=== PATIENT | female | born 1970 | race Caucasian/White ===

== ENCOUNTER → 2017-04-22 | Outpatient (CLI) | payer BC ==
--- NOTE | 2017-04-22 08:01 | US ---
EXAMINATION TYPE: US abd limited kidneys/bladder DATE OF EXAM: 04/22/2017 COMPARISON: 05/08/2016 and 12/03/2014 CLINICAL HISTORY: 46-year-old female Q61.9 Cystic kidney disease, unspecified. Pt states epigastric pain, history of renal cysts TECHNIQUE: Multiple sonographic images of the right upper quadrant, kidneys, and bladder are obtained . FINDINGS: Liver Length: 16.2 cm Gallbladder Wall: 0.2 cm CBD: 0.4 cm Right Kidney: 12.0 x 4.7 x 6.2 cm Left Kidney: 11.8 x 6.3 x 5.1 cm Pancreas: Suboptimally visualized secondary to shadowing from bowel gas Liver: wnl Gallbladder: wnl CBD: wnl Right Kidney: No hydronephrosis. Tiny 7 mm benign cortical cyst at the lateral mid to lower pole. Add itional benign 2.1 x 1.8 cm parapelvic cyst versus extra renal pelvis. Left Kidney: No hydronephrosis. Bladder: No gross abnormality. Bilateral Jets Seen Yes Stable cysts right kidney IMPRESSION: Stable cysts in the right kidney, one is cortical and subcentimeter measuring 7 mm. The second is par apelvic measuring 2.1 cm versus extrarenal pelvis.
== END | disposition home or self-care (01) ==
LOC: RADUSWWP 06:48
PROVIDERS: ATTEND Family Medicine
DX: N28.1 Cyst of kidney, acquired (principal)
CPT/HCPCS: 76705; 76770

== ENCOUNTER → 2018-05-14 | Outpatient (CLI) | payer BC ==
[2018-05-14 12:55] LABS: Basophils # (A) 0.1 k/uL (0-0.2); Basophils % (A) 2 %; Eosinophils # (A) 0.2 k/uL (0-0.7); Eosinophils % (A) 3 %; HCT 49.3 % (34.0-46.0); Lymphocytes # (A) 1.9 k/uL (1.0-4.8); Lymphocytes % (A) 37 %; MCH 32.8 pg (25.0-35.0); MCHC 32.4 g/dL (31.0-37.0); MCV 101.1 fL (80.0-100.0); Macrocytosis Slight; Mean Platelet Volume 7.1; Monocytes # (A) 0.3 k/uL (0-1.0); Monocytes % (A) 5 %; Neutrophils # (A) 2.6 k/uL (1.3-7.7); Neutrophils % (A) 50 %; Platelet Count 285 k/uL (150-450); RBC 4.88 m/uL (3.80-5.40); RDW 15.4 % (11.5-15.5); WBC 5.2 k/uL (3.8-10.6)
[2018-05-14 14:14] LABS: ALT 61 U/L (9-52); AST 43 U/L (14-36); Albumin 3.8 g/dL (3.5-5.0); Alkaline Phosphatase 66 U/L (38-126); Anion Gap 5 mmol/L; Blood Urea Nitrogen 12 mg/dL (7-17); Calcium 8.9 mg/dL (8.4-10.2); Carbon Dioxide 26 mmol/L (22-30); Chloride 110 mmol/L (98-107); Cholesterol 264 mg/dL (<200); Glucose 92 mg/dL (74-99); HDL Cholesterol 63 mg/dL (40-60); Potassium 4.5 mmol/L (3.5-5.1); Sodium 141 mmol/L (137-145); Total Bilirubin 0.5 mg/dL (0.2-1.3)
--- NOTE | 2018-05-14 14:50 | US ---
EXAMINATION TYPE: US kidneys/renal and bladder DATE OF EXAM: 05/14/2018 COMPARISON: CT abdomen and pelvis May 14, 2016 CLINICAL HISTORY: R31.9 Hematuria. hx of renal cysts, hx bladder infections EXAM MEASUREMENTS: Right Kidney: 10.8 x 5.9 x 5.1 cm Left Kidney: 10.3 x 4.8 x 4.9 cm Right Kidney: lateral cystic appearing lesion in cortical region - 0.6 x 0.7 x 0.4 cm. Medial anecho ic lesion seen at hilum - 1.4 x 2.3 x 1.3 cm. Left Kidney: wnl Bladder: wnl Bilateral Jets seen Suboptimal study due to body habitus. Technologist remy 1.4 cm round hypoechoic anechoic lesion cent [place] right kidney. IMPRESSION: No significant finding clearly seen to account for patient's symptoms of hematuria. Furth er investigation with CT urogram is warranted if symptoms persist.
[2018-05-14 15:30] LABS: LDL Cholesterol,Calculated 175 mg/dL (0-99); Triglycerides 128 mg/dL (<150)
== END | disposition home or self-care (01) ==
LOC: RADUSWWP 11:38
PROVIDERS: ATTEND Family Medicine
DX: R31.9 Hematuria, unspecified (principal); Z00.00 Encounter for general adult medical examination without abnormal findings; E27.9 Disorder of adrenal gland, unspecified
CPT/HCPCS: 76770; 80053; 80061; 82024; 82533; 84443; 85025

== ENCOUNTER 2018-05-30 10:01 | Emergency (ER) | payer BC ==
[2018-05-30 10:10] VITALS: TEMP 97.9
[2018-05-30] MEDS ORDERED: SODIUM CHLORIDE 0.9% 1,000 ML IV STA (10:33)
[2018-05-30] MEDS ORDERED: ONDANSETRON 4 MG/2 ML VIAL IVP STA (10:33)
[2018-05-30] MEDS ORDERED: SODIUM CHLORIDE 0.9% 500 ML 500 ML IV STA (10:33)
[2018-05-30] MEDS ORDERED: KETOROLAC 30 MG/ML 1 ML VIAL IVP STA (10:33)
--- NOTE | 2018-05-30 10:46 | ED ---
Back Pain HPI - General Chief Complaint: Back Pain/Injury Stated Complaint: poss kidney stones Time Seen by Provider: 05/30/18 10:20 Source: patient, RN notes reviewed Mode of arrival: ambulatory Limitations: no limitations - History of Present Illness Initial Comments: 47-year-old female presents emergency Department chief complaint of right flank pain. Patient states that this pain started approximately 90 minutes prior arrival. She states it sharp stabbing pain rates from her right flank to right lower abdomen. Patient states she has no history kidney stones. She does admit to nausea and vomiting. Patient states she has been on 3 antibiotics secondary to hematuria but states that there is been no evidence of bacterial infection. She states has not helped. Patient reports no chest pain or shortness breath she has a prior tubal ligation. - Related Data Home Medications Medication Instructions Recorded Confirmed Cyclobenzaprine [Flexeril] 10 mg PO DAILY PRN 05/30/18 05/30/18 DULoxetine HCL [Cymbalta] 30 mg PO HS 05/30/18 05/30/18 DULoxetine HCL [Cymbalta] 60 mg PO DAILY 05/30/18 05/30/18 Folic Acid 1 mg PO DAILY 05/30/18 05/30/18 Meloxicam 7.5 mg PO DAILY PRN 05/30/18 05/30/18 Methotrexate Inj 25mg/Ml 25 mg SQ HALE 05/30/18 05/30/18 Previous Rx's Medication Instructions Recorded Ketorolac [Toradol] 10 mg PO Q8HR #15 tab 05/30/18 Ondansetron Odt [Zofran Odt] 4 mg PO Q8HR PRN #10 tab 05/30/18 Tamsulosin [Flomax] 0.4 mg PO DAILY #7 cap 05/30/18 Allergies Allergy/AdvReac Type Severity Reaction Status Date / Time No Known Allergies Allergy Verified 05/30/18 10:45 Review of Systems ROS Statement: Those systems with pertinent positive or pertinent negative responses have been documented in the HPI. ROS Other: All systems not noted in ROS Statement are negative. Past Medical History Past Medical History: Fibromyalgia Additional Past Medical History / Comment(s): rheumatoid arthritis History of Any Multi-Drug Resistant Organisms: None Reported Past Surgical History: Tubal Ligation Additional Past Surgical History / Comment(s): fibroid tumor removed from uterus Past Psychological History: Depression Smoking Status: Current every day smoker Past Alcohol Use History: Rare Past Drug Use History: None Reported General Exam Limitations: no limitations General appearance: alert, in no apparent distress Head exam: Present: atraumatic, normocephalic, normal inspection Respiratory exam: Present: normal lung sounds bilaterally. Absent: respiratory distress, wheezes, rales, rhonchi, stridor Cardiovascular Exam: Present: regular rate, normal rhythm, normal heart sounds. Absent: systolic murmur, diastolic murmur, rubs, gallop, clicks GI/Abdominal exam: Present: soft, tenderness (Mild right-sided), normal bowel sounds. Absent: distended, guarding, rebound, rigid Back exam: Present: full ROM, CVA tenderness (R). Absent: CVA tenderness (L) Neurological exam: Present: alert, oriented X3, CN II-XII intact Skin exam: Present: warm, dry, intact, normal color. Absent: rash Course Vital Signs 05/30/18 10:06 Temperature 97.9 F Pulse Rate 94 Respiratory 18 Rate Blood Pressure 160/98 O2 Sat by Pulse 98 Oximetry Medical Decision Making - Medical Decision Making 47-year-old female presented for right flank pain. Patient has 2 UVJ stone 3 mm on the right, 1 left UPJ stone. Patient is comfortable after Toradol. Patient will be discharged with Toradol, Tylenol codeine, Flomax and Zofran. Return parameters were discussed. She is advised to call [facility] urology today for follow-up. - Lab Data Result diagrams: 05/30/18 10:50 05/30/18 10:50 Lab Results 05/30/18 05/30/18 05/30/18 Range/Units 10:50 10:50 10:50 WBC 7.1 (3.8-10.6) k/uL RBC 4.73 (3.80-5.40) m/uL Hgb 15.4 (11.4-16.0) gm/dL Hct 47.6 H (34.0-46.0) % MCV 100.7 H (80.0-100.0) fL MCH 32.6 (25.0-35.0) pg MCHC 32.4 (31.0-37.0) g/dL RDW 15.2 (11.5-15.5) % Plt Count 266 (150-450) k/uL Neutrophils % 59 % Lymphocytes % 27 % Monocytes % 6 % Eosinophils % 4 % Basophils % 1 % Neutrophils # 4.2 (1.3-7.7) k/uL Lymphocytes # 1.9 (1.0-4.8) k/uL Monocytes # 0.4 (0-1.0) k/uL Eosinophils # 0.3 (0-0.7) k/uL Basophils # 0.1 (0-0.2) k/uL Macrocytosis Slight Sodium 141 (137-145) mmol/L Potassium 4.3 (3.5-5.1) mmol/L Chloride 108 H (98-107) mmol/L Carbon Dioxide 27 (22-30) mmol/L Anion Gap 6 mmol/L BUN 14 (7-17) mg/dL Creatinine 0.73 (0.52-1.04) mg/dL Est GFR (CKD-EPI)AfAm >90 (>60 ml/min/1.73 sqM) Est GFR (CKD-EPI)NonAf >90 (>60 ml/min/1.73 sqM) Glucose 102 H (74-99) mg/dL Calcium 9.4 (8.4-10.2) mg/dL Total Bilirubin 0.6 (0.2-1.3) mg/dL AST 33 (14-36) U/L ALT 47 (9-52) U/L Alkaline Phosphatase 74 (38-126) U/L Total Protein 7.4 (6.3-8.2) g/dL Albumin 4.2 (3.5-5.0) g/dL Amylase 36 (30-110) U/L Lipase 45 (23-300) U/L Urine Color Yellow Urine Appearance Clear (Clear) Urine pH 5.5 (5.0-8.0) Ur Specific [place] 1.014 (1.001-1.035) Urine Protein Trace H (Negative) Urine Glucose (UA) Negative (Negative) Urine Ketones Negative (Negative) Urine Blood Moderate H (Negative) Urine Nitrite Negative (Negative) Urine Bilirubin Negative (Negative) Urine Urobilinogen <2.0 (<2.0) mg/dL Ur Leukocyte Esterase Small H (Negative) Urine RBC 31 H (0-5) /hpf Urine WBC 13 H (0-5) /hpf Ur Squamous Epith Cells 1 (0-4) /hpf Urine Bacteria Occasional H (None) /hpf Urine Mucus Occasional H (None) /hpf Disposition Clinical Impression: Bilateral ureteral calculi Disposition: HOME SELF-CARE Condition: Stable Instructions: Kidney Stones (ED) Additional Instructions: Please return to the Emergency Department if symptoms worsen or any other concerns. Prescriptions: Ketorolac [Toradol] 10 mg PO Q8HR #15 tab Ondansetron Odt [Zofran Odt] 4 mg PO Q8HR PRN #10 tab PRN Reason: Nausea Tamsulosin [Flomax] 0.4 mg PO DAILY #7 cap Is patient prescribed a controlled substance at d/c from ED?: No Referrals: Devaughn Sawant MD [Primary Care Provider] - 1-2 days Ryan Calvin MD [STAFF PHYSICIAN] - 1-2 days Time of Disposition: 13:21
[2018-05-30 11:08] LABS: Basophils # (A) 0.1 k/uL (0-0.2); Basophils % (A) 1 %; Eosinophils # (A) 0.3 k/uL (0-0.7); Eosinophils % (A) 4 %; HCT 47.6 % (34.0-46.0); HGB 15.4 gm/dL (11.4-16.0); Lymphocytes # (A) 1.9 k/uL (1.0-4.8); Lymphocytes % (A) 27 %; MCH 32.6 pg (25.0-35.0); MCHC 32.4 g/dL (31.0-37.0); MCV 100.7 fL (80.0-100.0); Macrocytosis Slight; Mean Platelet Volume 7.3; Monocytes # (A) 0.4 k/uL (0-1.0); Monocytes % (A) 6 %; Neutrophils # (A) 4.2 k/uL (1.3-7.7); Neutrophils % (A) 59 %; Platelet Count 266 k/uL (150-450); RBC 4.73 m/uL (3.80-5.40); RDW 15.2 % (11.5-15.5); WBC 7.1 k/uL (3.8-10.6)
[2018-05-30 11:17] LABS: ALT 47 U/L (9-52); AST 33 U/L (14-36); Albumin 4.2 g/dL (3.5-5.0); Alkaline Phosphatase 74 U/L (38-126); Amylase 36 U/L (30-110); Anion Gap 6 mmol/L; Blood Urea Nitrogen 14 mg/dL (7-17); Calcium 9.4 mg/dL (8.4-10.2); Carbon Dioxide 27 mmol/L (22-30); Chloride 108 mmol/L (98-107); Glucose 102 mg/dL (74-99); Lipase 45 U/L (23-300); Potassium 4.3 mmol/L (3.5-5.1); Sodium 141 mmol/L (137-145); Total Bilirubin 0.6 mg/dL (0.2-1.3); Total Protein 7.4 g/dL (6.3-8.2)
[2018-05-30 11:22] LABS: Appearance,Urine Clear (Clear); Bacteria,Urine Occasional /hpf; Bilirubin,Urine Negative (Negative); Blood,Urine Moderate (Negative); Color,Urine Yellow; Glucose,Urine (UA) Negative (Negative); Ketones,Urine Negative (Negative); Leukocyte Esterase,Urine Small (Negative); Mucus,Urine Occasional /hpf; Nitrite,Urine Negative (Negative); PH, Urine 5.5 (5.0-8.0); Protein,Urine Trace (Negative); RBC,Urine 31 /hpf (0-5); Specific Gravity,Urine 1.014 (1.001-1.035); Squamous Epithelial Cell,Urine 1 /hpf (0-4); Urobilinogen,Urine <2.0 mg/dL (<2.0); WBC,Urine 13 /hpf (0-5)
--- NOTE | 2018-05-30 12:47 | CT ---
EXAMINATION TYPE: CT abdomen pelvis wo con DATE OF EXAM: 05/30/2018 COMPARISON: 05/14/2016 HISTORY: Possible kidney stones CT DLP: 760.9 mGycm Examination of the solid and hollow viscera is limited given the lack of contrast. FINDINGS: LUNG BASES: No evidence for nodule. No evidence for infiltrate. LIVER/GB: The gallbladder is unremarkable. No space-occupying hepatic lesion. PANCREAS: No pancreatic mass identified. No inflammatory process seen. SPLEEN: No evidence for splenomegaly. No intrasplenic lesions seen. ADRENALS: No adrenal nodules identified. No evidence for thickening. KIDNEYS: Two 3 mm calculi are noted at the right UVJ resulting in [id number] right-sided hydrou reteronephrosis. 3.3 mm calculus proximal left ureter just distal to the UPJ resulting in mild left-s ided hydronephrosis. No additional renal calculi present. BOWEL: Appendix has a normal appearance. No evidence of bowel obstruction. No inflammatory process. Lymph nodes: No evidence for adenopathy greater than 1 cm. Abdominal aorta: Atheromatous changes seen. No evidence for aneurysm. Genital organs: No significant abnormality. Other: No significant abnormality. IMPRESSION: Two 3 mm calculi are noted at the right UVJ resulting in [id number] right-sided hydroureteronep hrosis. 3.3 mm calculus proximal left ureter just distal to the UPJ resulting in mild left-sided hydr onephrosis.
[2018-05-30] MEDS ORDERED: ACET/COD 300 MG/30 MG STARTER PACK 6 TAB BTL PO STA (13:21)
[2018-05-30 13:38] VITALS: BP 145/75; PULSE 71; RESP 16
== END 2018-05-30 13:38 | disposition home or self-care (01) ==
LOC: EC 10:01
DX: N20.1 Calculus of ureter (principal); M06.9 Rheumatoid arthritis, unspecified; F32.9 Major depressive disorder, single episode, unspecified; F17.200 Nicotine dependence, unspecified, uncomplicated; Z79.899 Other long term (current) drug therapy; Z98.51 Tubal ligation status
CPT/HCPCS: 36415; 80053; 82150; 83690; 85025; 81001; 74176; 99284; 96374; 96375; 96361 ×2; J2405; J1885

== ENCOUNTER 2019-06-10 16:14 | Emergency (ER) | payer BC ==
[2019-06-10] MEDS ORDERED: KETOROLAC 30 MG/ML 1 ML VIAL IVP STA (16:34)
[2019-06-10] MEDS ORDERED: SODIUM CHLORIDE 0.9% 1,000 ML IV STA (16:34)
[2019-06-10] MEDS ORDERED: ONDANSETRON 4 MG/2 ML VIAL IVP STA (16:34)
[2019-06-10 16:53] LABS: Basophils # (A) 0.1 k/uL (0-0.2); Basophils % (A) 1 %; Eosinophils # (A) 0.2 k/uL (0-0.7); Eosinophils % (A) 3 %; HCT 46.1 % (34.0-46.0); HGB 15.6 gm/dL (11.4-16.0); Lymphocytes # (A) 2.1 k/uL (1.0-4.8); Lymphocytes % (A) 23 %; MCH 31.2 pg (25.0-35.0); MCHC 33.9 g/dL (31.0-37.0); Mean Platelet Volume 7.4; Monocytes # (A) 0.6 k/uL (0-1.0); Monocytes % (A) 6 %; Neutrophils # (A) 5.9 k/uL (1.3-7.7); Neutrophils % (A) 65 %; Platelet Count 347 k/uL (150-450); RBC 5.01 m/uL (3.80-5.40); RDW 13.3 % (11.5-15.5)
--- NOTE | 2019-06-10 17:04 | XR ---
EXAMINATION TYPE: XR KUB DATE OF EXAM: 06/10/2019 COMPARISON: NONE HISTORY: Abdominal pain TECHNIQUE: 2 views upright FINDINGS: Bowel gas pattern is normal. There is no sign of intestinal obstruction or pneumoperitoneum . Fecal pattern is normal. Lung bases are clear. There is mild lumbar levoscoliosis. There are no pat hologic calcifications over the kidneys. There is no evidence of a mass. IMPRESSION: Nonacute abdomen.
[2019-06-10 17:09] LABS: ALT 20 U/L (4-34); AST 30 U/L (14-36); African American GFR (CKD) >90 (>60 ml/min/1.73 sqM); Albumin 3.9 g/dL (3.5-5.0); Alkaline Phosphatase 103 U/L (38-126); Amylase 34 U/L (30-110); Anion Gap 5 mmol/L; Blood Urea Nitrogen 10 mg/dL (7-17); Calcium 9.2 mg/dL (8.4-10.2); Carbon Dioxide 24 mmol/L (22-30); Chloride 107 mmol/L (98-107); Glucose 106 mg/dL (74-99); Non-African American GFR(CKD) >90 (>60 ml/min/1.73 sqM); Potassium 4.3 mmol/L (3.5-5.1); Sodium 136 mmol/L (137-145); Total Bilirubin 0.6 mg/dL (0.2-1.3); Total Protein 7.4 g/dL (6.3-8.2)
[2019-06-10 17:10] LABS: Appearance,Urine Clear (Clear); Bilirubin,Urine Negative (Negative); Blood,Urine Moderate (Negative); Color,Urine Yellow; Glucose,Urine (UA) Negative (Negative); Ketones,Urine Negative (Negative); Leukocyte Esterase,Urine Small (Negative); Mucus,Urine Moderate /hpf; Nitrite,Urine Negative (Negative); Protein,Urine Trace (Negative); RBC,Urine 16 /hpf (0-5); Specific Gravity,Urine 1.019 (1.001-1.035); Squamous Epithelial Cell,Urine 3 /hpf (0-4); WBC,Urine 2 /hpf (0-5)
[2019-06-10] MEDS ORDERED: ONDANSETRON 4 MG ODT STARTER PACK 2 TAB BTL PO STA (19:09)
--- NOTE | 2019-06-10 19:09 | ED ---
Abdominal Pain HPI - General Chief Complaint: Abdominal Pain Stated Complaint: Vomiting Time Seen by Provider: 06/10/19 16:20 Source: family Mode of arrival: ambulatory Limitations: no limitations - History of Present Illness Initial Comments: Patient is a 48-year-old female presenting to the emergency Department with complaints of lower abdominal cramping and discomfort that started last night. Patient states she also had one episode of vomiting today. She still continues to feel nauseous. She states her abdominal pain has been improving throughout the day but she feels like she might be getting dehydrated and she continues to be nauseous. Patient admits to bilateral fallopian tube removal, no other abdominal surgeries. Patient states she has not had a bowel movement in 2 days. Patient states this is normal for her as she has issues with constipation. She denies fever, chills, chest pain, shortness of breath, diarrhea, urinary/vaginal complaints. She has no other complaints at this time. Upon arrival to the ER, vital signs are stable. - Related Data Home Medications Medication Instructions Recorded Confirmed Cyclobenzaprine [Flexeril] 10 mg PO DAILY PRN 05/30/18 05/30/18 DULoxetine HCL [Cymbalta] 30 mg PO HS 05/30/18 05/30/18 DULoxetine HCL [Cymbalta] 60 mg PO DAILY 05/30/18 05/30/18 Folic Acid 1 mg PO DAILY 05/30/18 05/30/18 Meloxicam 7.5 mg PO DAILY PRN 05/30/18 05/30/18 Methotrexate Inj 25mg/Ml 25 mg SQ HALE 05/30/18 05/30/18 Previous Rx's Medication Instructions Recorded Ketorolac [Toradol] 10 mg PO Q8HR #15 tab 05/30/18 Ondansetron Odt [Zofran Odt] 4 mg PO Q8HR PRN #10 tab 05/30/18 Tamsulosin [Flomax] 0.4 mg PO DAILY #7 cap 05/30/18 Allergies Allergy/AdvReac Type Severity Reaction Status Date / Time cephalexin [From Keflex] AdvReac yeast Verified 06/10/19 16:18 infection Review of Systems ROS Statement: Those systems with pertinent positive or pertinent negative responses have been documented in the HPI. ROS Other: All systems not noted in ROS Statement are negative. Past Medical History Past Medical History: Fibromyalgia, Rheumatoid Arthritis (RA) Additional Past Medical History / Comment(s): rheumatoid arthritis History of Any Multi-Drug Resistant Organisms: None Reported Past Surgical History: Tubal Ligation Additional Past Surgical History / Comment(s): fibroid tumor removed from uterus Past Psychological History: Depression Smoking Status: Current every day smoker Past Alcohol Use History: Rare Past Drug Use History: None Reported General Exam - General Exam Comments Initial Comments: GENERAL: Well-appearing, well-nourished and in no acute distress. HEAD: Atraumatic, normocephalic. EYES: Pupils equal round and reactive to light, extraocular movements intact, sclera anicteric, conjunctiva are normal. ENT: TMs normal, nares patent, oropharynx clear without exudates. Moist mucous membranes. NECK: Normal range of motion, supple without lymphadenopathy or JVD. LUNGS: Breath sounds clear to auscultation bilaterally and equal. No wheezes rales or rhonchi. HEART: Regular rate and rhythm without murmurs, rubs or gallops. ABDOMEN: Mild suprapubic tenderness. Soft, nontender, normoactive bowel sounds. No guarding, no rebound. No masses appreciated. : Deferred, declined EXTREMITIES: Normal range of motion, no pitting or edema. No clubbing or cyanosis. NEUROLOGICAL: Normal speech, normal gait. PSYCH: Normal mood, normal affect. SKIN: Warm, Dry, normal turgor, no rashes or lesions noted. Limitations: no limitations Course Vital Signs 06/10/19 06/10/19 16:15 19:30 Temperature 98.3 F 98.5 F Pulse Rate 100 80 Respiratory 20 18 Rate Blood Pressure 145/82 140/79 O2 Sat by Pulse 99 98 Oximetry Medical Decision Making - Medical Decision Making Patient is a 48-year-old female presenting with lower abdominal cramping and nausea and vomiting since yesterday. Patient's vital signs are stable. Lab work shows no acute abnormalities. Urine has moderate blood, no signs of infection. Influenza is negative. KUB shows a nonacute abdomen. Patient was given fluids, Toradol, Zofran and reports improvement improvement in her symptoms. I recommended a vaginal exam however patient declined at this time. We discussed that her symptoms could be from a viral illness and/or constipation. She is in agreement with this. We discussed using MiraLAX as well as ibuprofen. She is stable for discharge at this time. Return parameters were discussed with the patient she verbalized understanding. - Lab Data Result diagrams: 06/10/19 16:40 06/10/19 16:40 Lab Results 06/10/19 06/10/19 06/10/19 Range/Units 16:40 16:40 16:40 WBC 9.0 (3.8-10.6) k/uL RBC 5.01 (3.80-5.40) m/uL Hgb 15.6 (11.4-16.0) gm/dL Hct 46.1 H (34.0-46.0) % MCV 92.0 (80.0-100.0) fL MCH 31.2 (25.0-35.0) pg MCHC 33.9 (31.0-37.0) g/dL RDW 13.3 (11.5-15.5) % Plt Count 347 (150-450) k/uL Neutrophils % 65 % Lymphocytes % 23 % Monocytes % 6 % Eosinophils % 3 % Basophils % 1 % Neutrophils # 5.9 (1.3-7.7) k/uL Lymphocytes # 2.1 (1.0-4.8) k/uL Monocytes # 0.6 (0-1.0) k/uL Eosinophils # 0.2 (0-0.7) k/uL Basophils # 0.1 (0-0.2) k/uL Sodium 136 L (137-145) mmol/L Potassium 4.3 (3.5-5.1) mmol/L Chloride 107 (98-107) mmol/L Carbon Dioxide 24 (22-30) mmol/L Anion Gap 5 mmol/L BUN 10 (7-17) mg/dL Creatinine 0.48 L (0.52-1.04) mg/dL Est GFR (CKD-EPI)AfAm >90 (>60 ml/min/1.73 sqM) Est GFR (CKD-EPI)NonAf >90 (>60 ml/min/1.73 sqM) Glucose 106 H (74-99) mg/dL Calcium 9.2 (8.4-10.2) mg/dL Total Bilirubin 0.6 (0.2-1.3) mg/dL AST 30 (14-36) U/L ALT 20 (4-34) U/L Alkaline Phosphatase 103 (38-126) U/L Total Protein 7.4 (6.3-8.2) g/dL Albumin 3.9 (3.5-5.0) g/dL Amylase 34 (30-110) U/L Lipase 38 (23-300) U/L Urine Color Yellow Urine Appearance Clear (Clear) Urine pH 7.0 (5.0-8.0) Ur Specific [place] 1.019 (1.001-1.035) Urine Protein Trace H (Negative) Urine Glucose (UA) Negative (Negative) Urine Ketones Negative (Negative) Urine Blood Moderate H (Negative) Urine Nitrite Negative (Negative) Urine Bilirubin Negative (Negative) Urine Urobilinogen 2.0 (<2.0) mg/dL Ur Leukocyte Esterase Small H (Negative) Urine RBC 16 H (0-5) /hpf Urine WBC 2 (0-5) /hpf Ur Squamous Epith Cells 3 (0-4) /hpf Urine Mucus Moderate H (None) /hpf Influenza Type A RNA (Not Detectd) Influenza Type B (PCR) (Not Detectd) 06/10/19 Range/Units 16:40 WBC (3.8-10.6) k/uL RBC (3.80-5.40) m/uL Hgb (11.4-16.0) gm/dL Hct (34.0-46.0) % MCV (80.0-100.0) fL MCH (25.0-35.0) pg MCHC (31.0-37.0) g/dL RDW (11.5-15.5) % Plt Count (150-450) k/uL Neutrophils % % Lymphocytes % % Monocytes % % Eosinophils % % Basophils % % Neutrophils # (1.3-7.7) k/uL Lymphocytes # (1.0-4.8) k/uL Monocytes # (0-1.0) k/uL Eosinophils # (0-0.7) k/uL Basophils # (0-0.2) k/uL Sodium (137-145) mmol/L Potassium (3.5-5.1) mmol/L Chloride (98-107) mmol/L Carbon Dioxide (22-30) mmol/L Anion Gap mmol/L BUN (7-17) mg/dL Creatinine (0.52-1.04) mg/dL Est GFR (CKD-EPI)AfAm (>60 ml/min/1.73 sqM) Est GFR (CKD-EPI)NonAf (>60 ml/min/1.73 sqM) Glucose (74-99) mg/dL Calcium (8.4-10.2) mg/dL Total Bilirubin (0.2-1.3) mg/dL AST (14-36) U/L ALT (4-34) U/L Alkaline Phosphatase (38-126) U/L Total Protein (6.3-8.2) g/dL Albumin (3.5-5.0) g/dL Amylase (30-110) U/L Lipase (23-300) U/L Urine Color Urine Appearance (Clear) Urine pH (5.0-8.0) Ur Specific [place] (1.001-1.035) Urine Protein (Negative) Urine Glucose (UA) (Negative) Urine Ketones (Negative) Urine Blood (Negative) Urine Nitrite (Negative) Urine Bilirubin (Negative) Urine Urobilinogen (<2.0) mg/dL Ur Leukocyte Esterase (Negative) Urine RBC (0-5) /hpf Urine WBC (0-5) /hpf Ur Squamous Epith Cells (0-4) /hpf Urine Mucus (None) /hpf Influenza Type A RNA Not Detected (Not Detectd) Influenza Type B (PCR) Not Detected (Not Detectd) Disposition Clinical Impression: Abdominal pain, Nausea & vomiting Disposition: HOME SELF-CARE Condition: Stable Instructions (If sedation given, give patient instructions): Abdominal Pain (ED) Additional Instructions: Please return to the Emergency Department if symptoms worsen or any other concerns. Continue to increase water intake. Trial of MiraLAX for constipation. Follow up with PCP if symptoms persist. Is patient prescribed a controlled substance at d/c from ED?: No Referrals: Devaughn Sawant MD [Primary Care Provider] - 1-2 days
[2019-06-10 19:34] VITALS: BP 140/79; PULSE 80; RESP 18; TEMP 98.5
== END 2019-06-10 19:32 | disposition home or self-care (01) ==
LOC: EC 16:14
DX: R10.30 Lower abdominal pain, unspecified (principal); R11.2 Nausea with vomiting, unspecified; M06.9 Rheumatoid arthritis, unspecified; F32.9 Major depressive disorder, single episode, unspecified; M79.7 Fibromyalgia; F17.200 Nicotine dependence, unspecified, uncomplicated; Z79.899 Other long term (current) drug therapy; Z88.1 Allergy status to other antibiotic agents
CPT/HCPCS: 36415; 80053; 82150; 83690; 85025; 81001; 87502; 74018; 99284; 96374; 96375; J2405; J1885; S0119

== ENCOUNTER 2021-10-19 21:51 | Inpatient (IN) | payer BC ==
[2021-10-20] MEDS ORDERED: ALBUTEROL NEBULIZED 2.5 MG/3 ML INHALATION STA ×2 (00:37→03:47)
[2021-10-20] MEDS ORDERED: predniSONE 20 MG TAB PO STA (00:37)
[2021-10-20] MEDS ORDERED: IPRATROPIUM-ALBUTEROL 3 ML NEB INHALATION STA (00:37)
--- NOTE | 2021-10-20 00:48 | ED ---
SOB HPI - General Chief Complaint: Shortness of Breath Stated Complaint: KACI Time Seen by Provider: 10/19/21 23:57 Source: patient Mode of arrival: ambulatory Limitations: no limitations - History of Present Illness Initial Comments: This patient is a 51-year-old woman who states she has history of some COPD and probably some interstitial lung disease related to rheumatoid arthritis. She notes that her respiratory status has been worsening over the past 3 days or so. She has had increased coughing, without sputum, increased wheezing and shortness of breath. She has tried using her home medications without much relief. She has not noted fever or chills. Again no change in sputum. No change in urination or bowel movements. No leg pain or swelling. MD Complaint: shortness of breath, cough Onset/Timin -: days(s) Severity scale (1-10): 0 Consistency: constant Improves With: nothing Worsens With: nothing Known History Of: COPD Associated Symptoms: cough Treatments Prior to Arrival: oxygen, bronchodilator - Related Data Home Oxygen Therapy: Yes Home Medications Medication Instructions Recorded Confirmed DULoxetine HCL [Cymbalta] 30 mg PO DAILY@1430 05/30/18 10/20/21 DULoxetine HCL [Cymbalta] 60 mg PO DAILY 05/30/18 10/20/21 Folic Acid 1 mg PO DAILY 05/30/18 10/20/21 Dextroamphetamine/Amphetamine 15 mg PO DAILY 08/08/21 10/20/21 [Adderall Xr] Hydroxychloroquine Sulfate 400 mg PO DAILY 08/08/21 10/20/21 Omeprazole 40 mg PO DAILY PRN 08/08/21 10/20/21 Tofacitinib Citrate [Xeljanz Xr] 11 mg PO DAILY 08/08/21 10/20/21 Albuterol Nebulized [Ventolin 2.5 mg INHALATION RT-TID 10/20/21 10/20/21 Nebulized] Fluticasone/Vilanterol [Breo 1 puff INHALATION RT-DAILY 10/20/21 10/20/21 Ellipta 200-25 Mcg Inhaler] Tiotropium 2.5 Mcg/Puff [Spiriva 2 puff INHALATION RT-DAILY 10/20/21 10/20/21 Respimat 2.5 Mcg] Allergies Allergy/AdvReac Type Severity Reaction Status Date / Time cephalexin [From Keflex] AdvReac yeast Verified 10/20/21 07:18 infection Review of Systems ROS Statement: Those systems with pertinent positive or pertinent negative responses have been documented in the HPI. ROS Other: All systems not noted in ROS Statement are negative. Constitutional: Denies: fever, chills Respiratory: Reports: cough, dyspnea, wheezes. Denies: hemoptysis Cardiovascular: Denies: chest pain, palpitations, edema, syncope Gastrointestinal: Denies: abdominal pain, nausea, vomiting Genitourinary: Denies: dysuria, frequency, hematuria Musculoskeletal: Denies: back pain Skin: Denies: rash Neurological: Denies: headache, weakness, numbness Psychiatric: Denies: anxiety Past Medical History Past Medical History: Fibromyalgia, Rheumatoid Arthritis (RA) Additional Past Medical History / Comment(s): rheumatoid arthritis History of Any Multi-Drug Resistant Organisms: None Reported Past Surgical History: Tubal Ligation Additional Past Surgical History / Comment(s): fibroid tumor removed from uterus Past Anesthesia/Blood Transfusion Reactions: No Reported Reaction Past Psychological History: Depression Smoking Status: Current every day smoker Past Alcohol Use History: Rare Past Drug Use History: None Reported - Past Family History Mother Family Medical History: Asthma Additional Family Medical History / Comment(s): Spinal stenosis, multiple abdominal surgeries/hernias Father Family Medical History: No Reported History Additional Family Medical History / Comment(s): Father is very healthy General Exam Limitations: no limitations General appearance: alert, in distress Head exam: Present: atraumatic, normocephalic Neck exam: Present: normal inspection Respiratory exam: Present: respiratory distress, wheezes, decreased breath sounds, prolonged expiratory. Absent: rales, rhonchi, stridor, accessory muscle use Cardiovascular Exam: Present: normal rhythm, tachycardia, normal heart sounds. Absent: systolic murmur, diastolic murmur, rubs, gallop GI/Abdominal exam: Present: soft. Absent: distended, tenderness, guarding, rebound, rigid, mass Extremities exam: Present: normal inspection, normal capillary refill. Absent: pedal edema, calf tenderness Back exam: Present: normal inspection. Absent: CVA tenderness (R), CVA tenderness (L) Neurological exam: Present: alert Skin exam: Present: warm, dry, intact, normal color. Absent: rash Course Vital Signs 10/19/21 10/20/21 10/20/21 22:23 00:48 00:59 Temperature 98.5 F Pulse Rate 118 H 108 H 108 H Pulse Rate [ Pulse Oximetery ] Respiratory 26 H Rate Blood Pressure 169/90 Blood Pressure [Right Arm] O2 Sat by Pulse 93 L Oximetry 10/20/21 10/20/21 10/20/21 04:34 04:46 04:56 Temperature Pulse Rate 118 H 112 H 110 H Pulse Rate [ Pulse Oximetery ] Respiratory 18 Rate Blood Pressure 113/76 Blood Pressure [Right Arm] O2 Sat by Pulse 95 Oximetry 10/20/21 10/20/21 10/20/21 05:00 06:00 07:35 Temperature Pulse Rate 107 H 103 H 117 H Pulse Rate [ Pulse Oximetery ] Respiratory 12 15 Rate Blood Pressure 113/76 113/76 Blood Pressure [Right Arm] O2 Sat by Pulse 96 98 96 Oximetry 10/20/21 10/20/21 10/20/21 07:48 09:32 11:10 Temperature Pulse Rate 109 H 110 H 110 H Pulse Rate [ Pulse Oximetery ] Respiratory 20 Rate Blood Pressure 119/80 Blood Pressure [Right Arm] O2 Sat by Pulse 97 Oximetry 10/20/21 10/20/21 10/20/21 11:25 12:30 14:00 Temperature 98.2 F Pulse Rate 116 H 116 H Pulse Rate [ 108 H Pulse Oximetery ] Respiratory 18 15 Rate Blood Pressure 129/88 Blood Pressure 117/74 [Right Arm] O2 Sat by Pulse 95 93 L Oximetry 10/20/21 14:34 Temperature Pulse Rate 106 H Pulse Rate [ Pulse Oximetery ] Respiratory 18 Rate Blood Pressure 130/79 Blood Pressure [Right Arm] O2 Sat by Pulse 100 Oximetry Medical Decision Making - Medical Decision Making Patient's 51-year-old woman presenting with dyspnea. I suspect there are components of COPD as well as interstitial lung disease related to rheumatoid arthritis. Patient be admitted for further evaluation and treatment as well as pulmonology consultation. - Lab Data Result diagrams: 10/20/21 01:14 10/20/21 01:14 Lab Results 10/20/21 10/20/21 10/20/21 Range/Units 01:14 01:14 01:14 WBC 8.0 (3.8-10.6) k/uL RBC 5.07 (3.80-5.40) m/uL Hgb 15.6 (11.4-16.0) gm/dL Hct 48.4 H (34.0-46.0) % MCV 95.4 (80.0-100.0) fL MCH 30.7 (25.0-35.0) pg MCHC 32.2 (31.0-37.0) g/dL RDW 14.4 (11.5-15.5) % Plt Count 314 (150-450) k/uL MPV 7.7 Neutrophils % 68 % Lymphocytes % 22 % Monocytes % 6 % Eosinophils % 0 % Basophils % 1 % Neutrophils # 5.4 (1.3-7.7) k/uL Lymphocytes # 1.8 (1.0-4.8) k/uL Monocytes # 0.5 (0-1.0) k/uL Eosinophils # 0.0 (0-0.7) k/uL Basophils # 0.1 (0-0.2) k/uL PT 10.0 (9.0-12.0) sec INR 0.9 (<1.2) APTT 22.5 (22.0-30.0) sec D-Dimer 0.37 (<0.60) mg/L FEU Sodium 137 (137-145) mmol/L Potassium 4.0 (3.5-5.1) mmol/L Chloride 103 (98-107) mmol/L Carbon Dioxide 26 (22-30) mmol/L Anion Gap 8 mmol/L BUN 21 H (7-17) mg/dL Creatinine 0.66 (0.52-1.04) mg/dL Est GFR (CKD-EPI)AfAm >90 (>60 ml/min/1.73 sqM) Est GFR (CKD-EPI)NonAf >90 (>60 ml/min/1.73 sqM) Glucose 156 H (74-99) mg/dL Plasma Lactic Acid Lionel (0.7-2.0) mmol/L Calcium 9.4 (8.4-10.2) mg/dL Total Bilirubin 0.3 (0.2-1.3) mg/dL AST 31 (14-36) U/L ALT 27 (4-34) U/L Alkaline Phosphatase 89 (38-126) U/L Troponin I (0.000-0.034) ng/mL NT-Pro-B Natriuret Pep pg/mL Total Protein 7.5 (6.3-8.2) g/dL Albumin 4.2 (3.5-5.0) g/dL Coronavirus (PCR) (Not Detectd) Influenza Type A RNA (Not Detectd) Influenza Type B (PCR) (Not Detectd) 10/20/21 10/20/21 10/20/21 Range/Units 01:14 01:14 01:14 WBC (3.8-10.6) k/uL RBC (3.80-5.40) m/uL Hgb (11.4-16.0) gm/dL Hct (34.0-46.0) % MCV (80.0-100.0) fL MCH (25.0-35.0) pg MCHC (31.0-37.0) g/dL RDW (11.5-15.5) % Plt Count (150-450) k/uL MPV Neutrophils % % Lymphocytes % % Monocytes % % Eosinophils % % Basophils % % Neutrophils # (1.3-7.7) k/uL Lymphocytes # (1.0-4.8) k/uL Monocytes # (0-1.0) k/uL Eosinophils # (0-0.7) k/uL Basophils # (0-0.2) k/uL PT (9.0-12.0) sec INR (<1.2) APTT (22.0-30.0) sec D-Dimer (<0.60) mg/L FEU Sodium (137-145) mmol/L Potassium (3.5-5.1) mmol/L Chloride (98-107) mmol/L Carbon Dioxide (22-30) mmol/L Anion Gap mmol/L BUN (7-17) mg/dL Creatinine (0.52-1.04) mg/dL Est GFR (CKD-EPI)AfAm (>60 ml/min/1.73 sqM) Est GFR (CKD-EPI)NonAf (>60 ml/min/1.73 sqM) Glucose (74-99) mg/dL Plasma Lactic Acid Lionel 1.1 (0.7-2.0) mmol/L Calcium (8.4-10.2) mg/dL Total Bilirubin (0.2-1.3) mg/dL AST (14-36) U/L ALT (4-34) U/L Alkaline Phosphatase (38-126) U/L Troponin I <0.012 (0.000-0.034) ng/mL NT-Pro-B Natriuret Pep 23 pg/mL Total Protein (6.3-8.2) g/dL Albumin (3.5-5.0) g/dL Coronavirus (PCR) (Not Detectd) Influenza Type A RNA (Not Detectd) Influenza Type B (PCR) (Not Detectd) 10/20/21 10/20/21 Range/Units 01:14 01:14 WBC (3.8-10.6) k/uL RBC (3.80-5.40) m/uL Hgb (11.4-16.0) gm/dL Hct (34.0-46.0) % MCV (80.0-100.0) fL MCH (25.0-35.0) pg MCHC (31.0-37.0) g/dL RDW (11.5-15.5) % Plt Count (150-450) k/uL MPV Neutrophils % % Lymphocytes % % Monocytes % % Eosinophils % % Basophils % % Neutrophils # (1.3-7.7) k/uL Lymphocytes # (1.0-4.8) k/uL Monocytes # (0-1.0) k/uL Eosinophils # (0-0.7) k/uL Basophils # (0-0.2) k/uL PT (9.0-12.0) sec INR (<1.2) APTT (22.0-30.0) sec D-Dimer (<0.60) mg/L FEU Sodium (137-145) mmol/L Potassium (3.5-5.1) mmol/L Chloride (98-107) mmol/L Carbon Dioxide (22-30) mmol/L Anion Gap mmol/L BUN (7-17) mg/dL Creatinine (0.52-1.04) mg/dL Est GFR (CKD-EPI)AfAm (>60 ml/min/1.73 sqM) Est GFR (CKD-EPI)NonAf (>60 ml/min/1.73 sqM) Glucose (74-99) mg/dL Plasma Lactic Acid Lionel (0.7-2.0) mmol/L Calcium (8.4-10.2) mg/dL Total Bilirubin (0.2-1.3) mg/dL AST (14-36) U/L ALT (4-34) U/L Alkaline Phosphatase (38-126) U/L Troponin I (0.000-0.034) ng/mL NT-Pro-B Natriuret Pep pg/mL Total Protein (6.3-8.2) g/dL Albumin (3.5-5.0) g/dL Coronavirus (PCR) Not Detected (Not Detectd) Influenza Type A RNA Not Detected (Not Detectd) Influenza Type B (PCR) Not Detected (Not Detectd) Disposition Clinical Impression: COPD exacerbation Disposition: ADMITTED IP TO THIS HOSP Condition: Fair Is patient prescribed a controlled substance at d/c from ED?: No
--- NOTE | 2021-10-20 01:25 | XR ---
EXAMINATION TYPE: XR chest 2V DATE OF EXAM: 10/20/2021 COMPARISON: 09/06/2021 HISTORY: Short of breath TECHNIQUE: 2 views FINDINGS: Heart and mediastinum are normal. Lungs are clear. Diaphragm is normal. Bony thorax appears normal. IMPRESSION: Normal chest. No change.
[2021-10-20 02:04] LABS: ALT 27 U/L (4-34); AST 31 U/L (14-36); African American GFR (CKD) >90 (>60 ml/min/1.73 sqM); Albumin 4.2 g/dL (3.5-5.0); Alkaline Phosphatase 89 U/L (38-126); Anion Gap 8 mmol/L; Basophils # (A) 0.1 k/uL (0-0.2); Basophils % (A) 1 %; Blood Urea Nitrogen 21 mg/dL (7-17); Calcium 9.4 mg/dL (8.4-10.2); Carbon Dioxide 26 mmol/L (22-30); Chloride 103 mmol/L (98-107); Eosinophils % (A) 0 %; Glucose 156 mg/dL (74-99); HCT 48.4 % (34.0-46.0); HGB 15.6 gm/dL (11.4-16.0); Lymphocytes # (A) 1.8 k/uL (1.0-4.8); Lymphocytes % (A) 22 %; MCH 30.7 pg (25.0-35.0); MCHC 32.2 g/dL (31.0-37.0); MCV 95.4 fL (80.0-100.0); Mean Platelet Volume 7.7; Monocytes # (A) 0.5 k/uL (0-1.0); Monocytes % (A) 6 %; Neutrophils # (A) 5.4 k/uL (1.3-7.7); Neutrophils % (A) 68 %; Non-African American GFR(CKD) >90 (>60 ml/min/1.73 sqM); Platelet Count 314 k/uL (150-450); RBC 5.07 m/uL (3.80-5.40); RDW 14.4 % (11.5-15.5); Sodium 137 mmol/L (137-145); Total Bilirubin 0.3 mg/dL (0.2-1.3); Total Protein 7.5 g/dL (6.3-8.2)
[2021-10-20 02:09] LABS: INR 0.9 (<1.2); Partial Thromboplastin Time 22.5 sec (22.0-30.0)
[2021-10-20] MEDS ORDERED: ALBUTEROL NEBULIZED 2.5 MG/3 ML INHALATION PRN ×2 (04:00→13:31)
--- NOTE | 2021-10-20 04:57 | P.HPIM ---
History of Present Illness H&P Date: 10/20/21 Patient is a 51-year-old female with a PMH of COPD, rheumatoid arthritis, chronic hypoxic respiratory failure on 3 L nasal cannula oxygen continuously at home who presents to the emergency room with complaints of shortness of breath. Patient reports her breathing has been gradually worsening over the past 3 days along with increased wheezing and cough productive of white phlegm. She denied experiencing chest discomfort or leg pain. Reports no changes in color and her phlegm. Reports using her inhalers at home without significant relief. Denied fever, chills, nausea, vomiting, abdominal pain, diarrhea. Chest x-ray was unremarkable. Review of systems: Pertinent positives and negatives as discussed in HPI, a complete review of systems was performed and all other systems are negative. Physical examination: General: non toxic, no distress, appears at stated age, obese Derm: no unusual rashes/lesions no unusual ecchymoses, warm, dry Head: atraumatic, normocephalic, symmetric Eyes: EOMI, no lid lag, anicteric sclera, pupils equal round reactive to light ENT: Nose and ears atraumatic, no thrush, no pharyngeal erythema Neck: No thyromegaly, no cervical lymphadenopathy, trachea midline, supple Mouth: no lip lesion, mucus membranes moist Cardiovascular: S1S2 reg, no murmur, positive posterior tibial pulse bilateral, no edema, capillary refill less than 2 seconds Lungs: Diffuse wheezing without rhonchi or rales, no accessory muscle use Abdominal: soft, nontender to palpation, no guarding, no appreciable organomegaly, normal bowel sounds Ext: no gross muscle atrophy, muscle strength 5 out of 5 in all 4 extremities grossly, no contractures, Neuro: CN II-XI grossly intact, light touch intact all 4 extremities, finger to nose within normal limits, Psych: Alert, oriented, appropriate affect Assessment/plan Acute COPD exacerbation -Continue with Solu-Medrol -DuoNeb's -Supplemental oxygen -Pulmonary consult Chronic conditions: Rheumatoid arthritis -Continue with home meds DVT prophylaxis -Heparin subq The patient is admitted with an anticipated greater than 2 midnight stay for evaluation of COPD exacerbation CODE STATUS: Full Code Discussed with: Patient Anticipated discharge date: 2-[address]: Home Past Medical History Past Medical History: Fibromyalgia, Rheumatoid Arthritis (RA) Additional Past Medical History / Comment(s): rheumatoid arthritis History of Any Multi-Drug Resistant Organisms: None Reported Past Surgical History: Tubal Ligation Additional Past Surgical History / Comment(s): fibroid tumor removed from uterus Past Anesthesia/Blood Transfusion Reactions: No Reported Reaction Past Psychological History: Depression Smoking Status: Current every day smoker Past Alcohol Use History: Rare Past Drug Use History: None Reported - Past Family History Mother Family Medical History: Asthma Additional Family Medical History / Comment(s): Spinal stenosis, multiple abdominal surgeries/hernias Father Family Medical History: Cancer Additional Family Medical History / Comment(s): Father is very healthy Medications and Allergies Home Medications Medication Instructions Recorded Confirmed Type DULoxetine HCL [Cymbalta] 30 mg PO HS 05/30/18 08/08/21 History DULoxetine HCL [Cymbalta] 60 mg PO DAILY 05/30/18 08/08/21 History Folic Acid 1 mg PO DAILY 05/30/18 08/08/21 History Albuterol Sulfate [Albuterol 2 puff PO RT-Q4H PRN 08/08/21 08/08/21 History Sulfate Hfa] Dextroamphetamine/Amphetamine 15 mg PO DAILY 08/08/21 08/08/21 History [Adderall Xr] Fluticasone/Vilanterol [Breo 1 puff PO RT-DAILY 08/08/21 08/08/21 History Ellipta 100-25 Mcg Inhaler] Hydroxychloroquine Sulfate 400 mg PO DAILY 08/08/21 08/08/21 History Kenalog 40mg/Ml Suspension For 2 ml INJ ONCE 08/08/21 08/08/21 History Injection Naltrexone HCl [Revia] 50 mg PO DAILY 08/08/21 08/08/21 History Omeprazole 40 mg PO DAILY 08/08/21 08/08/21 History Tofacitinib Citrate [Xeljanz Xr] 11 mg PO DAILY 08/08/21 08/08/21 History traMADol HCL 50 mg PO TID PRN 08/08/21 08/08/21 History Albuterol Nebulized [Ventolin 2.5 mg INHALATION Q6H 6 Days #75 ml 08/12/21 Rx Nebulized] Azithromycin [Zithromax] 500 mg PO DAILY #3 tab 08/12/21 Rx Ipratropium-Albuterol Nebulize 3 ml INHALATION RT-QID #120 dose 08/12/21 Rx [Duoneb 0.5 mg-3 mg/3 ml Soln] predniSONE 0 mg PO DIRECTED #22 tab 08/12/21 Rx Allergies Allergy/AdvReac Type Severity Reaction Status Date / Time cephalexin [From Keflex] AdvReac yeast Verified 06/10/19 16:18 infection Physical Exam Vitals: Vital Signs Temp Pulse Resp BP Pulse Ox 10/20/21 04:34 118 H 10/20/21 00:59 108 H 10/20/21 00:48 108 H 10/19/21 22:23 98.5 F 118 H 26 H 169/90 93 L Intake and Output 10/19/21 10/19/21 10/20/21 14:59 22:59 06:59 Other: Weight 90.718 kg Results CBC & Chem 7: 10/20/21 01:14 10/20/21 01:14 Labs: Abnormal Lab Results - Last 24 Hours (Table) 10/20/21 10/20/21 Range/Units 01:14 01:14 Hct 48.4 H (34.0-46.0) % BUN 21 H (7-17) mg/dL Glucose 156 H (74-99) mg/dL
[2021-10-20] MEDS: IPRATROPIUM-ALBUTEROL 3 ML NEB INHALATION SCH ×4 (07:35→20:01)
[2021-10-20 07:42] LABS: Glucose,Whole Blood 161 mg/dL (75-99)
[2021-10-20] MEDS: INSULIN ASPART (NovoLOG) 100 UNIT/ML VIAL SQ SCH ×4 (08:17→21:12)
[2021-10-20] MEDS ORDERED: predniSONE 20 MG TAB PO SCH (09:00)
[2021-10-20 12:31] LABS: Glucose,Whole Blood 155 mg/dL (75-99)
--- NOTE | 2021-10-20 13:32 | P.CNPUL ---
History of Present Illness Consult date: 10/20/21 Reason for consult: dyspnea, COPD History of present illness: This is a 51-year-old female patient with history of COPD. The patient does smoke this is a very young age. This is a second admission for this patient was hospitalized earlier for the same. She is negative for COVID 19 and she is also negative for influenza A and B. She has been vaccinated for COVID 192. She was seen in our office earlier and she has severe COPD with an FEV1 of 32% of predicted which is oxygen dependent. Despite all this, she still working at [employer]. She carries a nebulizer with her even at work so that she continue to use it on an as-needed basis. She is taken Breo 1 puff a day and Spiriva 2 puffs a day along with albuterol neb blood sugars as needed and albuterol HFA as needed. She gets short of breath with limited amount of activity and she coming in for exacerbation of her COPD. No pleurisy. No hemoptysis. No chest pain. I reviewed the CAT scan of the chest that was done back in July 2021 and the patient had some limited groundglass changes in lung bases more so on the right which could be potentially an indication of smoking induced ILD versus rheumatoid arthritis induced ILD as the patient has also history of rheumatoid arthritis maintained on a combination of Xaljanz and Plaquenil on outpatient basis. The patient has been on steroids in the past. No other major medical problems and comorbidities. Her joints are currently hot and her arthritis is active. Blood work essentially within normal limits. White cell count is normal. Hemoglobin is normal. Chest x-ray is within normal limits. . Normal d-dimer. No DVT. No pulmonary embolism. Her last cigarette was 2 days ago Review of Systems Constitutional: Reports daytime sleepiness, Reports fatigue, Reports weakness Eyes: denies as per HPI, denies blurred vision, denies bulging eye, denies dec reased vision, denies diplopia, denies discharge, denies dry eye, denies irritation, denies itching, denies pain, denies photophobia, denies loss of peripheral vision, denies loss of vision, denies tunnel vision/blind spots Ears: deny: decreased hearing, ear discharge, earache, tinnitus Ears, nose, mouth and throat: Reports as per HPI Breasts: absent: as per HPI, change in shape, gynecomastia, masses, nipple discharge, pain, skin changes, swelling Cardiovascular: Reports decreased exercise tolerance, Reports dyspnea on exertion, Reports shortness of breath Respiratory: Reports cough, Reports dyspnea, Reports snoring, Reports wheezing Genitourinary: Reports as per HPI Menstruation: Reports as per HPI Musculoskeletal: Reports as per HPI, Reports hot joints Musculoskeletal: absent: ankle pain, ankle stiffness, ankle swelling, as per HPI, elbow pain, elbow stiffness, elbow swelling, foot pain, foot stiffness, foot swelling, hand pain, hand stiffness, hand swelling, hip pain, hip stiffness, hip swelling, knee pain, knee stiffness, knee swelling, shoulder pain, shoulder stiffness, shoulder swelling, wrist pain, wrist stiffness, wrist swelling Integumentary: Reports as per HPI Neurological: Reports as per HPI Psychiatric: Reports as per HPI Endocrine: Reports as per HPI Hematologic/Lymphatic: Reports as per HPI Allergic/Immunologic: Reports as per HPI Past Medical History Past Medical History: Fibromyalgia, Rheumatoid Arthritis (RA) Additional Past Medical History / Comment(s): rheumatoid arthritis History of Any Multi-Drug Resistant Organisms: None Reported Past Surgical History: Tubal Ligation Additional Past Surgical History / Comment(s): fibroid tumor removed from uterus Past Anesthesia/Blood Transfusion Reactions: No Reported Reaction Past Psychological History: Depression Smoking Status: Current every day smoker Past Alcohol Use History: Rare Past Drug Use History: None Reported - Past Family History Mother Family Medical History: Asthma Additional Family Medical History / Comment(s): Spinal stenosis, multiple abdominal surgeries/hernias Father Family Medical History: No Reported History Additional Family Medical History / Comment(s): Father is very healthy Medications and Allergies Home Medications Medication Instructions Recorded Confirmed Type DULoxetine HCL [Cymbalta] 30 mg PO DAILY@1430 05/30/18 10/20/21 History DULoxetine HCL [Cymbalta] 60 mg PO DAILY 05/30/18 10/20/21 History Folic Acid 1 mg PO DAILY 05/30/18 10/20/21 History Dextroamphetamine/Amphetamine 15 mg PO DAILY 08/08/21 10/20/21 History [Adderall Xr] Hydroxychloroquine Sulfate 400 mg PO DAILY 08/08/21 10/20/21 History Omeprazole 40 mg PO DAILY PRN 08/08/21 10/20/21 History Tofacitinib Citrate [Xeljanz Xr] 11 mg PO DAILY 08/08/21 10/20/21 History Albuterol Nebulized [Ventolin 2.5 mg INHALATION RT-TID 10/20/21 10/20/21 History Nebulized] Fluticasone/Vilanterol [Breo 1 puff INHALATION RT-DAILY 10/20/21 10/20/21 History Ellipta 200-25 Mcg Inhaler] Tiotropium 2.5 Mcg/Puff [Spiriva 2 puff INHALATION RT-DAILY 10/20/21 10/20/21 History Respimat 2.5 Mcg] Allergies Allergy/AdvReac Type Severity Reaction Status Date / Time cephalexin [From Keflex] AdvReac yeast Verified 10/20/21 07:18 infection Physical Exam Vitals: Vital Signs Temp Pulse Resp BP Pulse Ox 10/20/21 12:30 116 H 18 129/88 95 10/20/21 11:25 116 H 10/20/21 11:10 110 H 10/20/21 09:32 110 H 20 119/80 97 10/20/21 07:48 109 H 10/20/21 07:35 117 H 96 10/20/21 06:00 103 H 15 113/76 98 10/20/21 05:00 107 H 12 113/76 96 10/20/21 04:56 110 H 18 113/76 95 10/20/21 04:46 112 H 10/20/21 04:34 118 H 10/20/21 00:59 108 H 10/20/21 00:48 108 H 10/19/21 22:23 98.5 F 118 H 26 H 169/90 93 L Intake and Output 10/19/21 10/20/21 10/20/21 22:59 06:59 14:59 Other: Weight 90.718 kg - Constitutional General appearance: obese - EENT Eyes: EOMI Ears: negative: bulging, bullous, dull, erythema, fluid, myringotomy tube, obs tructed by cerumen, scarring, unable to vistualize, other - Neck Carotids: negative: upstroke normal, upstroke delayed, upstroke diminished, upstroke bounding, bruit absent, bruit present Thyroid: negative: normal size, enlarged, firm, nodule - Respiratory Respiratory: bilateral: diminished, wheezing - Cardiovascular Heart sounds: normal: S1, S2 - Gastrointestinal General gastrointestinal: no organomegaly, soft, no tenderness - Neurologic Neurologic: CNII-XII intact - Psychiatric Psychiatric: A&O x's 3 Results - Laboratory Findings CBC and BMP: 10/20/21 01:14 10/20/21 01:14 PT/INR, D-dimer PT 10.0 sec (9.0-12.0) 10/20/21 01:14 INR 0.9 (<1.2) 10/20/21 01:14 D-Dimer 0.37 mg/L FEU (<0.60) 10/20/21 01:14 Abnormal lab findings: Abnormal Labs 10/20/21 10/20/21 10/20/21 01:14 01:14 07:40 Hct 48.4 H BUN 21 H Glucose 156 H POC Glucose (mg/dL) 161 H 10/20/21 12:29 Hct BUN Glucose POC Glucose (mg/dL) 155 H - Diagnostic Findings Chest x-ray: image reviewed Assessment and Plan Plan: Acute exacerbation of COPD with secondary shortness of breath Severe COPD at baseline with an FEV1 of 32% of predicted maintain Breo and Spiriva on outpatient basis Chronic hypoxic respiratory failure with acute decompensation secondary to above. Questionable ILD based on her earlier CAT scan. Consider rheumatoid arthritis induced ILD versus smoking use ILD. The patient had some limited groundglass changes in lung bases more so on the right. History of rheumatoid arthritis maintained on a combination of the Xaljanz and Plaquenil outpatient basis, she had been on methotrexate in the past. Smoker Obesity Plan Optimize COPD with recurrent treatments of bronchodilators, and I would suggest putting the patient back on IV Solu-Medrol. She should be able to use her Breo elective from home. I can also provide her with 5 Karen from the hospital one puff once a day. Once fully recovered, the patient will need a high resolution computed tomography scan of the chest to rule out the possibility of underlying interstitial lung disease. Continue rheumatoid arthritis management with a combination of treatment including Plaquenil and Xaljanz. She was on methotrexate in the past and she hasn't taken it for a total of 10 years and she quit methotrexate. Absolutely no smoking. Weight loss is recommended. We'll continue to follow.
[2021-10-20] MEDS ORDERED: PANTOPRAZOLE 40 MG TABLET PO PRN (14:05)
[2021-10-20] MEDS: DULoxetine HCL 30 MG CAPSULE.DR PO SCH (14:33)
--- NOTE | 2021-10-20 14:50 | P.PN ---
Subjective Progress Note Date: 10/20/21 Hospital course: Patient is a very pleasant 51-year-old female with a past medical history of rheumatoid arthritis, fibromyalgia, and COPD with continued nicotine dependence. Patient reports she has officially quit smoking as of coming into the hospital but up until hospitalization was still smoking approximately a half a pack of cigarettes per day. Patient presented to the emergency department with a chief complaint of increased shortness of breath and cough. She underwent full evaluation in the emergency department. CBC, coags, d-dimer, CMP, and troponin all unremarkable. Covid PCR, influenza A, and influenza B were all negative. EKG revealed sinus tachycardia at 110 bpm with no noted T-wave or ST abnormalities showing no signs of acute ischemia. Chest x-ray negative for acute cardiopulmonary process. Patient initially hypoxic and requiring 3 L O2 via nasal cannula to maintain SpO2 greater than 92%. Patient admitted under our services for acute on chronic respiratory failure with hypoxia secondary to COPD exacerbation. Pulmonology is consulted. Physical exam: Patient seen and evaluated at bedside this morning. She reports continued shortness of breath at rest and worsens with any exertion or during coughing fit. Patient denies having any headache, lightheadedness, dizziness, chest pain, palpitations, or experiencing any numbness/tingling/weakness/swelling in her extremities. Patient to continue Symbicort along with DuoNeb as needed for shortness of breath and/or wheezing. Patient placed on Solu-Medrol 60 mg IVP every 6 hours. Vital signs reviewed and stable. General: Nontoxic, no distress and appears stated age. Derm: Skin warm and dry, normal coloration for ethnicity. Head: Atraumatic, normocephalic and symmetric. Eyes: EOMs intact, no lid lag, and anicteric sclera Mouth: no lip lesions, mucus membranes moist Cardiovascular: regular rate and rhythm with normal S1S2, no murmur, positive posterior tibial pulses bilaterally, and cap refill < 2 seconds. Lungs: Respirations even, regular, and unlabored on room air. Lungs tight with noted expiratory wheezes throughout all blankenship. Abdominal: soft, nontender to palpation, no guarding, no appreciable organomegaly Ext: ROM intact. No gross muscle atrophy, no edema, no contractures Neuro: Speech clear, face symmetrical and CN II-XII grossly intact with no noted focal neuro deficits Psych: Alert and oriented to person, place, time, and situation. Appropriate and pleasant affect. Assessment and Plan of Care: Acute COPD exacerbation Acute respiratory failure with hypoxia secondary to COPD exacerbation -Consult to Pulmonology -Oxygenation to be administered and titrated as needed to maintain SPO2 equal to or greater than 92% -Telemetry monitoring. -Continuous Pulse-oximetry -Duonebs as needed for SOB and/or wheezing -Incentive Spirometry -Steroids: Solu-Medrol Nicotine dependence -Patient encouraged to stop smoking, she was educated on the benefits of smoking cessation and the risks of continued use. Patient reports she is ready to quit. Patient declined wanting nicotine patch or gum. Rheumatoid arthritis Fibromyalgia -Continue daily medication regimen with Xeljanz and hydroxychloroquine CODE STATUS: Full code DVT prophylaxis: Heparin Discussed with: Patient and RN Anticipated discharge date: Likely [address]: Home A total of 36 minutes was spent on the care of this complex patient more than 50% of the time was spent in counseling and care coordination. I reviewed the documentation as provided by the CRISPIN above, who is the original author of this note. I agree with the documented assessment and plan, with the following changes: None Objective - Vital Signs Vital signs: Vital Signs Temp 98.5 F 10/19/21 22:23 Pulse 109 H 10/20/21 07:48 Resp 15 10/20/21 06:00 BP 113/76 10/20/21 06:00 Pulse Ox 96 10/20/21 07:35 FiO2 Intake & Output 10/19/21 10/20/21 10/20/21 18:59 06:59 18:59 Weight 90.718 kg - Labs CBC & Chem 7: 10/20/21 01:14 10/20/21 01:14 Labs: Abnormal Lab Results - Last 24 Hours (Table) 10/20/21 10/20/21 10/20/21 Range/Units 01:14 01:14 07:40 Hct 48.4 H (34.0-46.0) % BUN 21 H (7-17) mg/dL Glucose 156 H (74-99) mg/dL POC Glucose (mg/dL) 161 H (75-99) mg/dL
[2021-10-20] MEDS ORDERED: ACETAMINOPHEN TAB 325 MG TAB PO PRN (16:07)
[2021-10-20 17:04] LABS: Glucose,Whole Blood 143 mg/dL (75-99)
[2021-10-20] MEDS: HEPARIN SODIUM,PORCINE/PF 5,000 UNIT/0.5 ML SYRINGE SQ SCH ×2 (17:12→23:46)
[2021-10-20] MEDS: HYDROcodone/APAP 5-325MG 1 EACH TAB PO PRN ×2 (17:12→21:12)
[2021-10-20] MEDS: methylPREDNISolone SOD SUCCI 125 MG/2 ML VIAL IV SCH ×2 (17:13→23:46)
[2021-10-20] MEDS: SYMBICORT 160-4.5 MCG INHALER INHALATION SCH (20:01)
[2021-10-20 20:20] LABS: Glucose,Whole Blood 144 mg/dL (75-99)
[2021-10-21] MEDS: methylPREDNISolone SOD SUCCI 125 MG/2 ML VIAL IV SCH ×4 (05:14→23:54)
[2021-10-21 06:56] LABS: Glucose,Whole Blood 151 mg/dL (75-99)
[2021-10-21] MEDS: FOLIC ACID 1 MG TAB PO SCH (07:50)
[2021-10-21] MEDS: DULoxetine HCL 60 MG CAPSULE.DR PO SCH (07:50)
[2021-10-21] MEDS: HYDROXYCHLOROQUINE SULFATE 200 MG TAB PO SCH (07:50)
[2021-10-21] MEDS: HEPARIN SODIUM,PORCINE/PF 5,000 UNIT/0.5 ML SYRINGE SQ SCH ×3 (07:50→23:55)
[2021-10-21] MEDS: INSULIN ASPART (NovoLOG) 100 UNIT/ML VIAL SQ SCH ×4 (07:50→20:30)
[2021-10-21] MEDS ORDERED: NON FORMULARY DRUG (Tiotropium 2.5 Mcg/Puff 10 PUFF Each) INHALATION SCH (08:00)
[2021-10-21] MEDS ORDERED: NON FORMULARY DRUG (Fluticasone/Vilanterol [Breo Ellipta 200-25 Mcg Inhaler] 1 EACH Blst.W INHALATION SCH (08:00)
[2021-10-21] MEDS: SYMBICORT 160-4.5 MCG INHALER INHALATION SCH ×2 (10:02→19:47)
[2021-10-21] MEDS: IPRATROPIUM-ALBUTEROL 3 ML NEB INHALATION SCH ×5 (10:03→19:47)
[2021-10-21] MEDS: TOFACITINIB CITRATE 11 MG PO SCH (10:32)
[2021-10-21] MEDS ORDERED: KETOROLAC 15 MG/ML 1 ML VIAL IVP STA (11:36)
[2021-10-21 11:53] LABS: Glucose,Whole Blood 144 mg/dL (75-99)
--- NOTE | 2021-10-21 13:09 | P.PN ---
Subjective Progress Note Date: 10/21/21 This is a 51-year-old female patient with history of COPD. The patient does smoke this is a very young age. This is a second admission for this patient was hospitalized earlier for the same. She is negative for COVID 19 and she is also negative for influenza A and B. She has been vaccinated for COVID 192. She was seen in our office earlier and she has severe COPD with an FEV1 of 32% of predicted which is oxygen dependent. Despite all this, she still working at [employer]. She carries a nebulizer with her even at work so that she continue to use it on an as-needed basis. She is taken Breo 1 puff a day and Spiriva 2 puffs a day along with albuterol neb blood sugars as needed and albuterol HFA as needed. She gets short of breath with limited amount of activity and she coming in for exacerbation of her COPD. No pleurisy. No hemoptysis. No chest pain. I reviewed the CAT scan of the chest that was done back in July 2021 and the patient had some limited groundglass changes in lung bases more so on the right which could be potentially an indication of smoking induced ILD versus rheum atoid arthritis induced ILD as the patient has also history of rheumatoid arthritis maintained on a combination of Xaljanz and Plaquenil on outpatient basis. The patient has been on steroids in the past. No other major medical problems and comorbidities. Her joints are currently hot and her arthritis is active. Blood work essentially within normal limits. White cell count is normal. Hemoglobin is normal. Chest x-ray is within normal limits. . Normal d-dimer. No DVT. No pulmonary embolism. Her last cigarette was 2 days ago 10/21/2021, the patient is being seen for a follow-up. Limited improvement since yesterday and the patient is still struggling with her breathing and she is still bronchus spastic and wheezy despite being on DuoNeb the veterans around the clock and IV Solu Medrol. We'll give the patient another 24 hours. Objective - Vital Signs Vital signs: Vital Signs Temp 97.8 F 10/21/21 05:13 Pulse 100 10/21/21 10:03 Resp 18 10/21/21 05:13 BP 126/65 10/21/21 05:13 Pulse Ox 95 10/21/21 05:13 FiO2 Intake & Output 10/20/21 10/21/21 10/21/21 18:59 06:59 18:59 Intake Total 1180 600 Balance 1180 600 Weight 90.718 kg Intake: Oral 1180 600 Other: Voiding Method Toilet Toilet # Voids 2 2 - Exam General appearance: obese - EENT Eyes: EOMI Ears: negative: bulging, bullous, dull, erythema, fluid, myringotomy tube, obstructed by cerumen, scarring, unable to vistualize, other - Neck Carotids: negative: upstroke normal, upstroke delayed, upstroke diminished, upstroke bounding, bruit absent, bruit present Thyroid: negative: normal size, enlarged, firm, nodule - Respiratory Respiratory: bilateral: diminished, wheezing - Cardiovascular Heart sounds: normal: S1, S2 - Gastrointestinal General gastrointestinal: no organomegaly, soft, no tenderness - Neurologic Neurologic: CNII-XII intact - Psychiatric Psychiatric: A&O x's 3 - Labs CBC & Chem 7: 10/20/21 01:14 10/20/21 01:14 Labs: Abnormal Lab Results - Last 24 Hours (Table) 10/20/21 10/20/21 10/20/21 Range/Units 12:29 17:02 20:17 POC Glucose (mg/dL) 155 H 143 H 144 H (75-99) mg/dL 10/21/21 Range/Units 06:54 POC Glucose (mg/dL) 151 H (75-99) mg/dL Assessment and Plan Plan: Acute exacerbation of COPD with secondary shortness of breath Severe COPD at baseline with an FEV1 of 32% of predicted maintain Breo and Spiriva on outpatient basis Chronic hypoxic respiratory failure with acute decompensation secondary to above. Questionable ILD based on her earlier CAT scan. Consider rheumatoid arthritis induced ILD versus smoking use ILD. The patient had some limited groundglass changes in lung bases more so on the right. History of rheumatoid arthritis maintained on a combination of the Xaljanz and Plaquenil outpatient basis, she had been on methotrexate in the past. Smoker Obesity Plan Limited improvement since yesterday Continue IV Solu Medrol Continue bronchodilators with DuoNeb Continue Symbicort Monitor respiratory status Once fully recovered, the patient will need a high resolution computed tomography scan of the chest to rule out the possibility of underlying interstitial lung disease. Continue rheumatoid arthritis management with a combination of treatment including Plaquenil and Xaljanz. She was on methotrexate in the past and she hasn't taken it for a total of 10 years and she quit methotrexate. Absolutely no smoking. Weight loss is recommended. We'll continue to follow.
[2021-10-21] MEDS: DULoxetine HCL 30 MG CAPSULE.DR PO SCH (13:35)
--- NOTE | 2021-10-21 15:57 | P.PN ---
Subjective Progress Note Date: 10/21/21 Hospital course: Patient is a very pleasant 51-year-old female with a past medical history of rheumatoid arthritis, fibromyalgia, and COPD with continued nicotine dependence. Patient reports she has officially quit smoking as of coming into the hospital but up until hospitalization was still smoking approximately a half a pack of cigarettes per day. Patient presented to the emergency department with a chief complaint of increased shortness of breath and cough. She underwent full evaluation in the emergency department. CBC, coags, d-dimer, CMP, and troponin all unremarkable. Covid PCR, influenza A, and influenza B were all negative. EKG revealed sinus tachycardia at 110 bpm with no noted T-wave or ST abnormalities showing no signs of acute ischemia. Chest x-ray negative for acute cardiopulmonary process. Patient initially hypoxic and requiring 3 L O2 via nasal cannula to maintain SpO2 greater than 92%. Patient admitted under our services for acute on chronic respiratory failure with hypoxia secondary to COPD exacerbation. Pulmonology is following. Physical exam: Patient seen and evaluated at bedside this morning. She reports her shortness of breath has improved at rest but continues with any exertion and did have noted conversational dyspnea with significant wheezing. She continues to deny having any headache, lightheadedness, dizziness, chest pain, or palpitations. We will place patient on scheduled DuoNeb's every 4 hours in addition to DuoNeb' s as needed with wheezing and/or shortness of breath. Patient to continue Solu- Medrol 60 mg IVP every 6 hours. Vital signs reviewed and stable. General: Nontoxic, no distress and appears stated age. Derm: Skin warm and dry, normal coloration for ethnicity. Head: Atraumatic, normocephalic and symmetric. Eyes: EOMs intact, no lid lag, and anicteric sclera Mouth: no lip lesions, mucus membranes moist Cardiovascular: regular rate and rhythm with normal S1S2, no murmur, positive posterior tibial pulses bilaterally, and cap refill < 2 seconds. Lungs: Respirations even and regular with increased respiratory effort on 4 L O2 via nasal cannula. Lungs tight with noted expiratory wheezes throughout all blankenship. Abdominal: soft, nontender to palpation, no guarding, no appreciable organomegaly Ext: ROM intact. No gross muscle atrophy, no edema, no contractures Neuro: Speech clear, face symmetrical and CN II-XII grossly intact with no noted focal neuro deficits Psych: Alert and oriented to person, place, time, and situation. Appropriate and pleasant affect. Assessment and Plan of Care: Acute COPD exacerbation Acute respiratory failure with hypoxia secondary to COPD exacerbation -Consult to Pulmonology -Oxygenation to be administered and titrated as needed to maintain SPO2 equal to or greater than 92% -Telemetry monitoring. -Continuous Pulse-oximetry -Duonebs scheduled every 4 hours and as needed for SOB and/or wheezing -Incentive Spirometry encouraged use 10-15 times hourly while awake., -Steroids: Solu-Medrol 60 mg IVP every 6 hours. Nicotine dependence -Patient encouraged to stop smoking, she was educated on the benefits of smoking cessation and the risks of continued use. Patient reports she is ready to quit. Patient declined wanting nicotine patch or gum. Rheumatoid arthritis Fibromyalgia -Continue daily medication regimen with Xeljanz and hydroxychloroquine CODE STATUS: Full code DVT prophylaxis: Heparin Discussed with: Patient and RN Anticipated discharge date: Possibly tom versus Saturday pending patient's improvement Anticipated discharge place: Home A total of 31 minutes was spent on the care of this complex patient more than 50% of the time was spent in counseling and care coordination. I reviewed the documentation as provided by the CRISPIN above, who is the original author of this note. I agree with the documented assessment and plan, with the following changes: None Objective - Vital Signs Vital signs: Vital Signs Temp 97.8 F 10/21/21 05:13 Pulse 89 10/21/21 05:13 Resp 18 10/21/21 05:13 BP 126/65 10/21/21 05:13 Pulse Ox 95 10/21/21 05:13 FiO2 Intake & Output 10/20/21 10/21/21 10/21/21 18:59 06:59 18:59 Intake Total 1180 600 Balance 1180 600 Weight 90.718 kg Intake: Oral 1180 600 Other: Voiding Method Toilet # Voids 2 2 - Labs CBC & Chem 7: 10/20/21 01:14 10/20/21 01:14 Labs: Abnormal Lab Results - Last 24 Hours (Table) 10/20/21 10/20/21 10/20/21 Range/Units 12:29 17:02 20:17 POC Glucose (mg/dL) 155 H 143 H 144 H (75-99) mg/dL 05/28/22 Range/Units 06:54 POC Glucose (mg/dL) 151 H (75-99) mg/dL
[2021-10-21 17:24] LABS: Glucose,Whole Blood 154 mg/dL (75-99)
[2021-10-21 20:10] LABS: Glucose,Whole Blood 161 mg/dL (75-99)
[2021-10-21] MEDS: HYDROcodone/APAP 5-325MG 1 EACH TAB PO PRN (21:58)
[2021-10-22] MEDS: IPRATROPIUM-ALBUTEROL 3 ML NEB INHALATION SCH ×5 (00:11→11:04)
[2021-10-22] MEDS: methylPREDNISolone SOD SUCCI 125 MG/2 ML VIAL IV SCH ×2 (05:40→11:56)
[2021-10-22 07:18] LABS: Glucose,Whole Blood 139 mg/dL (75-99)
[2021-10-22] MEDS: SYMBICORT 160-4.5 MCG INHALER INHALATION SCH (07:18)
[2021-10-22] MEDS: INSULIN ASPART (NovoLOG) 100 UNIT/ML VIAL SQ SCH ×2 (07:57→11:58)
[2021-10-22] MEDS: HEPARIN SODIUM,PORCINE/PF 5,000 UNIT/0.5 ML SYRINGE SQ SCH (07:57)
[2021-10-22] MEDS: DULoxetine HCL 60 MG CAPSULE.DR PO SCH (07:58)
[2021-10-22] MEDS: HYDROXYCHLOROQUINE SULFATE 200 MG TAB PO SCH (07:58)
[2021-10-22] MEDS: FOLIC ACID 1 MG TAB PO SCH (07:58)
[2021-10-22] MEDS: TOFACITINIB CITRATE 11 MG PO SCH (07:59)
[2021-10-22 11:43] LABS: Glucose,Whole Blood 129 mg/dL (75-99)
--- NOTE | 2021-10-22 12:05 | P.PN ---
Subjective Progress Note Date: 10/22/21 This is a 51-year-old female patient with history of COPD. The patient does smoke this is a very young age. This is a second admission for this patient was hospitalized earlier for the same. She is negative for COVID 19 and she is also negative for influenza A and B. She has been vaccinated for COVID 192. She was seen in our office earlier and she has severe COPD with an FEV1 of 32% of predicted which is oxygen dependent. Despite all this, she still working at [employer]. She carries a nebulizer with her even at work so that she continue to use it on an as-needed basis. She is taken Breo 1 puff a day and Spiriva 2 puffs a day along with albuterol neb blood sugars as needed and albuterol HFA as needed. She gets short of breath with limited amount of activity and she coming in for exacerbation of her COPD. No pleurisy. No hemoptysis. No chest pain. I reviewed the CAT scan of the chest that was done back in July 2021 and the patient had some limited groundglass changes in lung bases more so on the right which could be potentially an indication of smoking induced ILD versus rheum atoid arthritis induced ILD as the patient has also history of rheumatoid arthritis maintained on a combination of Xaljanz and Plaquenil on outpatient basis. The patient has been on steroids in the past. No other major medical problems and comorbidities. Her joints are currently hot and her arthritis is active. Blood work essentially within normal limits. White cell count is normal. Hemoglobin is normal. Chest x-ray is within normal limits. . Normal d-dimer. No DVT. No pulmonary embolism. Her last cigarette was 2 days ago 10/21/2021, the patient is being seen for a follow-up. Limited improvement since yesterday and the patient is still struggling with her breathing and she is still bronchus spastic and wheezy despite being on DuoNeb the [facility] around the clock and IV Solu Medrol. We'll give the patient another 24 hours. 10/22/2021, the patient has no new complaints clinically improving and the patient is being considered for discharge. Last bronchus spastic and wheezy on today's evaluation. No chest pain. Remains on IV Solu-Medrol Objective - Vital Signs Vital signs: Vital Signs Temp 98.9 F 10/22/21 07:46 Pulse 108 H 10/22/21 11:15 Resp 16 10/22/21 07:46 BP 128/80 10/22/21 07:46 Pulse Ox 97 10/22/21 07:46 FiO2 Intake & Output 10/21/21 10/22/21 10/22/21 18:59 06:59 18:59 Intake Total 500 590 Balance 500 590 Intake: Oral 500 590 Other: Voiding Method Toilet Toilet Toilet # Voids 4 2 - Exam General appearance: obese - EENT Eyes: EOMI Ears: negative: bulging, bullous, dull, erythema, fluid, myringotomy tube, obstructed by cerumen, scarring, unable to vistualize, other - Neck Carotids: negative: upstroke normal, upstroke delayed, upstroke diminished, upstroke bounding, bruit absent, bruit present Thyroid: negative: normal size, enlarged, firm, nodule - Respiratory Respiratory: bilateral: diminished, wheezing - Cardiovascular Heart sounds: normal: S1, S2 - Gastrointestinal General gastrointestinal: no organomegaly, soft, no tenderness - Neurologic Neurologic: CNII-XII intact - Psychiatric Psychiatric: A&O x's 3 - Labs CBC & Chem 7: 10/20/21 01:14 10/20/21 01:14 Labs: Abnormal Lab Results - Last 24 Hours (Table) 10/21/21 10/21/21 10/22/21 Range/Units 17:22 20:08 07:16 POC Glucose (mg/dL) 154 H 161 H 139 H (75-99) mg/dL 10/22/21 Range/Units 11:41 POC Glucose (mg/dL) 129 H (75-99) mg/dL Assessment and Plan Plan: Acute exacerbation of COPD with secondary shortness of breath Severe COPD at baseline with an FEV1 of 32% of predicted maintain Breo and Spiriva on outpatient basis Chronic hypoxic respiratory failure with acute decompensation secondary to above. Questionable ILD based on her earlier CAT scan. Consider rheumatoid arthritis induced ILD versus smoking use ILD. The patient had some limited groundglass changes in lung bases more so on the right. History of rheumatoid arthritis maintained on a combination of the Xaljanz and Plaquenil outpatient basis, she had been on methotrexate in the past. Smoker Obesity Plan Clinically improved with much less bronchospasm and wheezing on today's evaluation. This continued IV Solu Medrol and switch this patient a prednisone burst taper. The patient can be discharged home on Spiriva and Breo DuoNeb nebulized treatments around the clock, DuoNeb neb vitamins [id number], and a prednisone burst taper Once fully recovered, the patient will need a high resolution computed tomography scan of the chest to rule out the possibility of underlying interstitial lung disease. Continue rheumatoid arthritis management with a combination of treatment including Plaquenil and Xaljanz. She was on met hotrexate in the past and she hasn't taken it for a total of 10 years and she quit methotrexate. Absolutely no smoking. Weight loss is recommended. We'll continue to follow in the office regarding her COPD and possible RA induced ILD
[2021-10-22 13:49] VITALS: BP 129/85; PULSE 114; RESP 18; TEMP 98.4
--- NOTE | 2021-10-22 14:01 | P.DS ---
Providers Date of admission: 10/20/21 04:00 Expected date of discharge: 10/22/21 Attending physician: Evelia Scanlon MD Consults: 10/20/21 04:00 Consult Physician Routine Consulting Provider: Mara Winn Consult Reason/Comments: COPD exacerbation Do you want consulting provider notified?: Yes Primary care physician: Devaughn Hanson [facility] Course: Discharge Diagnosis: Acute COPD exacerbation, patient to continue duo nebs every 4-6 hours for shortness of breath and/or wheezing along with Spiriva and Breo and patient discharged home on prednisone taper. patient strongly encouraged to Stop smoking and to follow up outpatient with pulmonology in one week. Acute respiratory failure with hypoxia secondary to COPD exacerbation Nicotine dependence. Patient encouraged to stop smoking, she was educated on the benefits of smoking cessation and the risks of continued use. Patient reports she is ready to quit. Patient declined wanting nicotine patch or gum. Rheumatoid arthritis. Continue daily medication regimen with Xeljanz and hydroxychloroquine Fibromyalgia Hospital Course: Patient is a very pleasant 51-year-old female with a past medical history of rheumatoid arthritis, fibromyalgia, and COPD with continued nicotine dependence. Patient reports she has officially quit smoking as of coming into the hospital but up until hospitalization was still smoking approximately a half a pack of cigarettes per day. Patient presented to the emergency department with a chief complaint of increased shortness of breath and cough. She underwent full evaluation in the emergency department. CBC, coags, d-dimer, CMP, and troponin all unremarkable. Covid PCR, influenza A, and influenza B were all negative. EKG revealed sinus tachycardia at 110 bpm with no noted T-wave or ST abnormalities showing no signs of acute ischemia. Chest x-ray negative for acute cardiopulmonary process. Patient initially hypoxic and requiring 3 L O2 via nasal cannula to maintain SpO2 greater than 92%. Patient was admitted under our services for acute on chronic respiratory failure with hypoxia secondary to COPD exacerbation and pulmonology was consulted. patient was treated with IV Solu-Medrol along with scheduled DuoNeb's every 4 hours as well as as needed for wheezing and/or shortness of breath. Patient's condition improved and she is stable for discharge home. Pulmonology clearing patient recommending outpatient follow-up in their office. Patient instructed to continue duo nebs every 4-6 hours as needed for shortness of breath and/or wheezing along with Spiriva and Breo and patient discharged home on prednisone taper. Patient strongly encouraged to Stop smoking and to follow up outpatient with PCP in 1-2 days and pulmonology in one week. Physical exam: Patient seen and evaluated at bedside this morning. She reports her shortness of breath has improved at rest but continues with any exertion and did have noted conversational dyspnea with significant wheezing. She continues to deny having any headache, lightheadedness, dizziness, chest pain, or palpitations. We will place patient on scheduled DuoNeb's every 4 hours in addition to DuoNeb's as needed with wheezing and/or shortness of breath. Patient to continue Solu-Medrol 60 mg IVP every 6 hours. Vital signs reviewed and stable. General: Nontoxic, no distress and appears stated age. Derm: Skin warm and dry, normal coloration for ethnicity. Head: Atraumatic, normocephalic and symmetric. Eyes: EOMs intact, no lid lag, and anicteric sclera Mouth: no lip lesions, mucus membranes moist Cardiovascular: regular rate and rhythm with normal S1S2, no murmur, positive posterior tibial pulses bilaterally, and cap refill < 2 seconds. Lungs: Respirations even and regular with increased respiratory effort on 4 L O2 via nasal cannula. Lungs tight with noted expiratory wheezes throughout all blankenship. Abdominal: soft, nontender to palpation, no guarding, no appreciable organomegaly Ext: ROM intact. No gross muscle atrophy, no edema, no contractures Neuro: Speech clear, face symmetrical and CN II-XII grossly intact with no noted focal neuro deficits Psych: Alert and oriented to person, place, time, and situation. Appropriate and pleasant affect. A total of 33 minutes of time were spent preparing this complex discharge summary. Pt was discharged on 10/22/21 at 1:59 PM. I reviewed the documentation as provided by the CRISPIN above, who is the original author of this note. I agree with the documented assessment and plan, with the following changes: None Patient Condition at Discharge: Stable Plan - Discharge Summary Discharge Rx Participant: No New Discharge Prescriptions: New predniSONE See Taper PO DIRECTED 12 Days #30 tab Continue Folic Acid 1 mg PO DAILY DULoxetine HCL [Cymbalta] 60 mg PO DAILY DULoxetine HCL [Cymbalta] 30 mg PO DAILY@1430 Fluticasone/Vilanterol [Breo Ellipta 200-25 Mcg Inhaler] 1 puff INHALATION RT-DAILY Tiotropium 2.5 Mcg/Puff [Spiriva Respimat 2.5 Mcg] 2 puff INHALATION RT-DAILY Tofacitinib Citrate [Xeljanz Xr] 11 mg PO DAILY Omeprazole 40 mg PO DAILY PRN PRN Reason: Heartburn Hydroxychloroquine Sulfate 400 mg PO DAILY Dextroamphetamine/Amphetamine [Adderall Xr] 15 mg PO DAILY Albuterol Nebulized [Ventolin Nebulized] 2.5 mg INHALATION RT-TID Discharge Medication List DULoxetine HCL [Cymbalta] 30 mg PO DAILY@1430 05/30/18 [History] DULoxetine HCL [Cymbalta] 60 mg PO DAILY 05/30/18 [History] Folic Acid 1 mg PO DAILY 05/30/18 [History] Dextroamphetamine/Amphetamine [Adderall Xr] 15 mg PO DAILY 08/08/21 [History] Hydroxychloroquine Sulfate 400 mg PO DAILY 08/08/21 [History] Omeprazole 40 mg PO DAILY PRN 08/08/21 [History] Tofacitinib Citrate [Xeljanz Xr] 11 mg PO DAILY 08/08/21 [History] Albuterol Nebulized [Ventolin Nebulized] 2.5 mg INHALATION RT-TID 10/20/21 [History] Fluticasone/Vilanterol [Breo Ellipta 200-25 Mcg Inhaler] 1 puff INHALATION RT- DAILY 10/20/21 [History] Tiotropium 2.5 Mcg/Puff [Spiriva Respimat 2.5 Mcg] 2 puff INHALATION RT-DAILY 10/20/21 [History] predniSONE See Taper PO DIRECTED 12 Days #30 tab 10/22/21 [Rx] Follow up Appointment(s)/Referral(s): Devaughn Sawant MD [Primary Care Provider] - 1-2 days Mara Winn MD [STAFF PHYSICIAN] - 1 Week Patient Instructions/Handouts: COPD (Chronic Obstructive Pulmonary Disease) (DC) Activity/Diet/Wound Care/Special Instructions: Activity: As tolerated. Take breaks as needed. Diet: Heart healthy and carb consistent diet. Avoid salts, or foods with hidden salts such as canned or boxed foods and frozen dinners. Extra salt makes your heart work harder and traps the fluid in your body for longer. Special Instructions: Take all of your medications as directed and remember to keep all of your doctor's appointments and follow-up as needed. Please refrain from all tobacco use, absolutely no smoking!!! Thank you for allowing us to participate in your care, it was truly a pleasure having you for our patient!!! Discharge Disposition: HOME SELF-CARE
[2021-10-22] MEDS: DULoxetine HCL 30 MG CAPSULE.DR PO SCH (15:02)
== END 2021-10-22 15:17 | disposition home or self-care (01) | DRG 190 ==
LOC: EC 21:51 → 4SSUR 10-20 04:00 → 5NMEDONC 10-20 13:43
PROVIDERS: ADMIT Internal Medicine; ATTEND Internal Medicine
DX: J44.1 Chronic obstructive pulmonary disease with (acute) exacerbation (principal); J96.21 Acute and chronic respiratory failure with hypoxia; J84.9 Interstitial pulmonary disease, unspecified; M06.9 Rheumatoid arthritis, unspecified; F32.A Depression, unspecified; F17.210 Nicotine dependence, cigarettes, uncomplicated; Z99.81 Dependence on supplemental oxygen; M79.7 Fibromyalgia; R00.0 Tachycardia, unspecified; E66.9 Obesity, unspecified; Z68.32 Body mass index [BMI] 32.0-32.9, adult; G47.09 Other insomnia; R53.83 Other fatigue; R12 Heartburn; R53.1 Weakness; Z20.822 Contact with and (suspected) exposure to COVID-19; Z79.899 Other long term (current) drug therapy; Z71.6 Tobacco abuse counseling; Z98.890 Other specified postprocedural states; Z98.51 Tubal ligation status; Z88.1 Allergy status to other antibiotic agents; Z87.42 Personal history of other diseases of the female genital tract; Z79.51 Long term (current) use of inhaled steroids; Z82.69 Family history of other diseases of the musculoskeletal system and connective tissue; Z82.5 Family history of asthma and other chronic lower respiratory diseases; Z83.79 Family history of other diseases of the digestive system
CPT/HCPCS: 36415; 71046; 80053; 83605; 83880; 84484; 85025; 85379; 85610; 85730; 87502; 87635; 93005; 94640; 94760; 99285

== ENCOUNTER → 2021-11-20 | Outpatient (CLI) | payer BC ==
--- NOTE | 2021-11-21 00:52 | CT ---
EXAMINATION TYPE: CT chest wo con DATE OF EXAM: 11/20/2021 INDICATION: copd CT DLP: 520.3 mGy.cm Automated Exposure Control for Dose Reduction was Utilized. TECHNIQUE AND CONTRAST: CT scan of the chest is performed without IV contrast administration. COMPARISON: CT dated 08/08/2021 FINDINGS: Significant interval improvement of the previously seen diffuse reticulonodular infiltrates mainly of the lower lung zones likely representing improving pulmonary infection. COPD changes. Small atelecta sis in the middle lobe. Grossly unremarkable lungs otherwise. Patent trachea and main bronchi. No pleural or pericardial effusion. No gross cardiomegaly. Scattered arterial atherosclerotic calcifi cations. No pathologically enlarged lymph nodes in the chest. Left adrenal adenoma measuring 2 cm, ap preciated previously. Degenerative changes of the thoracic spine. IMPRESSION: COPD changes. Interval improvement of the previously seen pulmonary infiltrative process likely repre senting resolving pulmonary infection including atypical infection. Recommend clinical correlation an d further workup. Other findings as described above.
== END | disposition home or self-care (01) ==
LOC: RADCTMAIN 17:08
PROVIDERS: ATTEND Internal Medicine Critical Care Medicine
DX: J44.9 Chronic obstructive pulmonary disease, unspecified (principal); J84.9 Interstitial pulmonary disease, unspecified
CPT/HCPCS: 71250

== ENCOUNTER → 2023-04-08 | Outpatient (CLI) | payer BC ==
--- NOTE | 2023-04-08 08:09 | MM ---
Reason for Exam: Screening (asymptomatic). Patient History: Menarche at age 11. First Full-Term at age 16. Postmenopausal. Paternal aunt had breast cancer, age 53. Risk Values: Radha 5 year model risk: 0.8%. NCI Lifetime model risk: 6.9%. Tissue Density: There are scattered fibroglandular densities. Findings: Analyzed By CAD. There is no suspicious group of microcalcifications or suspicious mass in either breast. Benign calcifications within both breasts. Overall Assessment: Benign, BI-RAD 2 Management: Screening Mammogram of both breasts in 1 year. A clinical breast exam by your physician is recommended on an annual basis and results should be correlated with mammographic findings. Note on Radha scores and lifetime risk: 1. A Radha score greater than 3% is considered moderate risk. If this is the case, consider specialist referral to assess eligibility for a risk reducing agent. If overall lifetime risk for the development of breast cancer is 20% or higher, the patient may qualify for future screening with alternating mammogram and breast MRI. Electronically signed and approved by: Clement Santana D.O.
== END | disposition home or self-care (01) ==
LOC: RADMAMWWP 07:18
PROVIDERS: ATTEND Family Medicine
DX: Z12.31 Encounter for screening mammogram for malignant neoplasm of breast (principal); Z78.0 Asymptomatic menopausal state; Z80.3 Family history of malignant neoplasm of breast
CPT/HCPCS: 77063; 77067

== ENCOUNTER → 2024-03-25 | Outpatient (CLI) | payer BC ==
--- NOTE | 2024-03-27 13:33 | MR ---
EXAMINATION TYPE: MR lumbar spine wo con DATE OF EXAM: 03/25/2024 COMPARISON: None HISTORY: Low back pain into legs x1 year, worse down LT side, Numbness both legs worse in RT CONTRAST: 0 mL intravenous Gadavist. TECHNIQUE: Multiplanar, multisequence images of the lumbar spine were acquired. FINDINGS: L5-S1: No significant disc bulge or disc herniation. No spinal canal stenosis. No foraminal stenosi s. Mild facet changes. L4-L5: No significant disc bulge or disc herniation. No spinal canal stenosis. Severe left foramina l stenosis. Ligamentum flavum laxity present. L3-L4: Broad based disc bulge with mild anterior thecal sac impression. No spinal canal stenosis. M oderate to severe right foraminal stenosis. L2-L3: Mild disc bulge or disc herniation. Disc space narrowing is present. No spinal canal stenosi s. No foraminal stenosis. L1-L2: No significant disc bulge or disc herniation. No spinal canal stenosis. No foraminal stenosi s. T12-L1: No significant disc bulge or disc herniation. Disc space narrowing is present. No spinal ca nal stenosis. No foraminal stenosis. IMPRESSION: 1. Severe left L4-L5 and moderate to severe right L3-L4 foraminal stenosis. 2. Degenerative disc changes with narrowing of T12-L1 and L2-3, and L3-4. [facility], Workstation: [email or web address], 03/27/2024 1:30 PM
== END | disposition home or self-care (01) ==
LOC: RADMRIMAIN 18:26
PROVIDERS: ATTEND Family Medicine
DX: M51.15 Intervertebral disc disorders with radiculopathy, thoracolumbar region (principal); M99.73 Connective tissue and disc stenosis of intervertebral foramina of lumbar region
CPT/HCPCS: 72148

== ENCOUNTER → 2024-04-30 | Outpatient (CLI) | payer BC ==
--- NOTE | 2024-05-04 08:39 | MM ---
Reason for Exam: Screening (asymptomatic). Last mammogram was performed 1 year(s) and 1 month(s) ago. Patient History: Menarche at age 11. First Full-Term at age 16. Postmenopausal. Paternal aunt had breast cancer, age 53. Risk Values: Radha 5 year model risk: 0.9%. NCI Lifetime model risk: 6.8%. Prior Study Comparison: 04/08/2023 Bilateral MG 3D screening mammo w/cad, [facility]. Tissue Density: There are scattered areas of fibroglandular density. Findings: Analyzed By CAD. Right breast: There is no suspicious group of microcalcifications or new suspicious mass. Left breast: There is no suspicious group of microcalcifications or new suspicious mass. Overall Assessment: Negative, BI-RAD 1 Management: Screening Mammogram of both breasts in [address] [facility] will attempt to contact patient to return for supplemental views and ultrasound if indicated. Patient should continue monthly self-breast exams. A clinical breast exam by your physician is recommended on an annual basis. This exam should not preclude additional follow-up of suspicious palpable abnormalities. Note on Radha scores and lifetime risk: 1. A Radha score greater than 3% is considered moderate risk. If this is the case, consider specialist referral to assess eligibility for a risk reducing agent. 2. If overall lifetime risk for the development of breast cancer is 20% or higher, the patient may qualify for future screening with alternating mammogram and breast MRI. [facility], , 05/04/2024 8:36 AM. Electronically signed and approved by: Edmond Lee DO
== END | disposition home or self-care (01) ==
LOC: RADMAMWWP 15:01
PROVIDERS: ATTEND Family Medicine
DX: Z12.31 Encounter for screening mammogram for malignant neoplasm of breast (principal); R92.323 Mammographic fibroglandular density, bilateral breasts; Z78.0 Asymptomatic menopausal state; Z80.3 Family history of malignant neoplasm of breast
CPT/HCPCS: 77063; 77067

== ENCOUNTER → 2024-05-12 | Outpatient (CLI) | payer BC ==
[2024-05-12 14:06] VITALS: BP 118/86; PULSE 110; RESP 16
--- NOTE | 2024-05-12 14:56 | P.PAINPG ---
Objective - Vital Signs Vital signs: Vital Signs Temp Pulse 110 H 05/12/24 14:03 Resp 16 05/12/24 14:03 BP 118/86 05/12/24 14:03 Pulse Ox 96 05/12/24 14:03 FiO2 Intake & Output 05/11/24 05/12/24 05/12/24 18:59 06:59 18:59 Weight 99.79 kg PQRS Measure Charge Sheet Mode of Arrival: Ambulatory Comment: HISTORY OF PRESENT ILLNESS: A 53 yr old female as a referral from Dr Mcknight presents today w severe and chronic LBP > 6 mo secondary to radiculopathy, spondylosis and facet arthropathy without myelopathy for evaluation. Pt states pain level is provoked at 6 /10 in intensity, constant, localized in the lumbar spine, predominantly axial, achy in character w occasional shooting pain L & R of midline. Pain is provoked by walking/ standing for periods > 15 min. Pain is alleviated by massage therapy semi monthly x 6 months which ended in Summer 2023, physician guided home stretches daily since Summer 2023, heat, medications (Neurontin, Ibu), repositioning and rest . Oswestry axial pain score at 28. PMH: OA, Fibromyalgia, RA, Scoliosis, MDD PSH: Tubal Ligation, Uterine Fibroid Resection SH: Daily tobacco use, Rare ETOH use, No illicit drug use FH: Mo- Asthma. Fa- No Reported History All: See list Meds: See list REVIEW OF ORGAN SYSTEMS: CONSTITUTIONAL: No fevers or chills. No recent weight loss. NEUROLOGICAL: + numbness and tingling along the distal extremities. No seizure disorders or headaches. MUSCULOSKELETAL: + pain PSYCHIATRIC: Denies current depression or suicidal thoughts. Physical Examinations : Constitutional : Cooperative , not in acute distress . Neurologic : Cranial nerve II to XII intact. No focal neurological deficits. Psychiatric : alert & oriented x 3. Matching mood & appropriate affect. Judgment & insight intact. Musculoskeletal : Cervical Spine Motor strength in the deltoid and biceps: Normal right side. Normal Left side Motor strength biceps and the wrist extensors: Normal right side . Normal left side Motor strength in the triceps muscle: Normal right side. Normal left side Deep tendon reflexes: Normal at the biceps. Normal at Brachioradialis. Normal at triceps Vertebral body tenderness to deep palpation over Cervical facet loading test: positive bilaterally Spurling test: positive bilaterally Neck distraction test: positive bilaterally Jud sign: positive bilaterally Lumbar spine Motor strength lower extremities ,thigh and legs 5/5 Right side , 5/5 Left side Deep tendon reflexes : Normal Knee Jerk. Normal Ankle Jerk Vertebral body tenderness over Gambino Test positive Lumbar facet Loading Test: positive Right / positive Left L3-L4/ L4-L5 Range of motion of the lumbar spine Flexion 30 degrees, extension 10 degrees Straight Leg Raise test: Left/ Right positive at degrees Jl test: positive right / positive left. Severe tenderness over the Sacroiliac joint on the Right / Left sides Gaenslen test: positive bilaterally Seated flexion test: positive bilaterally. Sacral spine : Severe tenderness over the Sacroiliac joint: right side / left side Range of motion: Flexion of the lumbar spine <60 degrees Range of motion: Extension of the lumbar spine <20 degrees Gaenslen's Test positive Jl test: positive right side / left side Thigh Thrust Test Sacral Thrust Test Imaging: MRI non contrast lumbar spine from 03/25/24 reviewed Assessment/ Plan : Lumbar radiculopathy Recommendation of BL MBB L3-L4/ L4-L5 #1. Risks, benefits of procedure discussed and patient verbalized understanding. Admits to anti- coagulant use or medical history of diabetes. Protocol for discontinuation/ continuation of medications jose procedure discussed. Minimal anesthesia provided, if clinically indicated, consisting of Versed and Fentanyl. All questions answered. I have spent greater than 30 minutes on patient care today. Dr Fierro was available by phone for the evaluation of this patient. The time was used to review the medical records including relevant urine studies and Prescription history (MAPs), review of the available imaging, evaluation and examination of the patient, coordination of care with the medical staff and if applicable referring physicians, as well as creation of the medical record - Pain Location Bilateral Lower Back Non-Pharmacological Interventions: Heat, Inactivity, Position/Reposition, Sitting Pharmacological Interventions: PRN Medication PQRS Narrative: Smoking Status Current every day smoker Blood Pressure 118/86 Pain Intensity [Bilateral 6 Lower Back] Scale Used Numeric (1 - 10) Hx Alcohol Use (MH) No Home Medications: Ambulatory Orders DULoxetine HCL [Cymbalta] 30 mg PO DAILY@1430 05/30/18 DULoxetine HCL [Cymbalta] 60 mg PO DAILY 05/30/18 Folic Acid 1 mg PO DAILY 01/04/19 Dextroamphetamine/Amphetamine [Adderall Xr] 15 mg PO DAILY 08/08/21 Hydroxychloroquine Sulfate 400 mg PO DAILY 08/08/21 Omeprazole 40 mg PO DAILY PRN 08/08/21 Tofacitinib Citrate [Xeljanz Xr] 11 mg PO DAILY 08/08/21 Albuterol Nebulized [Ventolin Nebulized] 2.5 mg INHALATION RT-TID 10/20/21 Fluticasone/Vilanterol [Breo Ellipta 200-25 Mcg Inhaler] 1 puff INHALATION RT- DAILY 10/20/21 Tiotropium 2.5 Mcg/Puff [Spiriva Respimat 2.5 Mcg] 2 puff INHALATION RT-DAILY 10/20/21 predniSONE See Taper PO DIRECTED 12 Days #30 tab 10/22/21 Controlled Substance Measures - Controlled Substance Measures Is patient prescribed a controlled substance at discharge?: No
== END ==
LOC: PNWHC3 13:50
PROVIDERS: ATTEND Specialist
DX: M47.26 Other spondylosis with radiculopathy, lumbar region (principal); M41.9 Scoliosis, unspecified; Z88.1 Allergy status to other antibiotic agents; F17.210 Nicotine dependence, cigarettes, uncomplicated
CPT/HCPCS: 99211

== ENCOUNTER 2024-06-04 11:36 | Day surgery (SDC) | payer BC ==
[2024-06-01 16:17] VITALS: BMI 35.5
[~2024-06-04 11:36] MED LIST: LACTATED RINGERS 1,000 ML IV SCH
[2024-06-04] MEDS: LACTATED RINGERS 1,000 ML IV ONE (11:45)
[2024-06-04 12:18] VITALS: TEMP 98
[2024-06-04] MEDS ORDERED: MIDAZOLAM 2 MG/2 ML VIAL ONE (12:20)
[2024-06-04] MEDS ORDERED: fentaNYL (PF) 50 MCG/ML 2 ML AMP ONE (12:20)
[2024-06-04] MEDS ORDERED: ROPIVACAINE 5MG/ML 20ML VIAL ONE (12:20)
--- NOTE | 2024-06-04 12:36 | P.PCN ---
Date of Procedure: 06/04/24 Procedure(s) Performed: PREOPERATIVE DIAGNOSIS : 1- Lumbar spondylosis with Facet Arthropathy without myelopathy . 2- Lumber degenerative disc disease POSTOPERATIVE DIAGNOSIS: 1- Lumbar spondylosis with Facet Arthropathy without myelopathy . 2- Lumber degenerative disc disease PROCEDURE: Diagnostic bilateral L2 , L3 , L4 medial branch block under fluoroscopy guidance(fluoroscopy images available in the radiology Department ) ( To target the facet joint between Bilateral L3-4 , L4-5 )#1st ANESTHESIA: moderate sedation with intravenous Versed 2 mg and Fentanyl 100 mcg.( Sedation start time 1220, end time 1231) EBL: Minimal COMPLICATION: None PROCEDURE INDICATION: Chronic low back pain secondary to Facet arthropathy unresponsive to conservative treatment. PROCEDURE DESCRIPTION: the patient was seen and identified in the preop holding area , risks and benefits and possible complications of the procedure and alternative were discussed with the patient, and the patient agreed to proceed with the procedure and signed the consent and vital signs monitored during the procedure and fluoroscopy was used to maximize the benefit and accuracy of the needle placement, and sedation was given to decrease patient a nxiety, patient was taken to the procedure room and placed in prone position vital signs monitored in the back prepped with chlorhexidine X3 then under strict sterile technique using a right oblique fluoroscopy ,the junction of the transverse process and the superior articulating process of the right L2 ,L3 , L4 vertebra which corresponding to the fluoroscopy image of the eye of the Agustín dog on the block side for the medial branches and subsequently , after local infiltration of skin and subcu tissuies with Ropivacaine 0.5 % , one mL at each level ,then 22-gauge 5 inches long Quincke-type needles , 3 needle was used , each one of them placed at the junction of the base of the transverse process and the superior articular process at the appropriate level, and the needle was advanced until the periosteum contacted, needle placement confirmed with AP oblique and lateral view and after appropriate needle placement confirmed, and after negative aspiration for heme and CSF and there was no paresthesia 1-1/2 mL of Ropivacaine 0.5% , then half mL injected at each level after negative aspiration the needle subsequently removed and the same procedure repeated for the left side at left side at L2 ,L3 , L4 levels. At the end of the procedure and the needles removed and a bandage applied after the skin was cleaned the cleaning solution patient taken to recovery room in stable condition and monitors in the recovery room for 20-30 minutes and discharged home in stable condition after discharge criteria met and patient will follow up with the pain clinic in 2-4 weeks
[2024-06-04] MEDS: SODIUM CHLORIDE 0.9% 100 ML IV ONE (12:38)
--- NOTE | 2024-06-04 12:45 | FL ---
EXAMINATION TYPE: FL guided pain mgmt statistic DATE OF EXAM: 06/04/2024 CLINICAL HISTORY: Low back pain. TECHNIQUE: Fluoroscopy. COMPARISON: None. FINDINGS: Fluoroscopic guidance was provided during pain relief procedure performed by Dr. Fierro . A total of 15.6 seconds of fluoroscopic time was utilized during the procedure and 4 spot images a re acquired. Images acquired shows needle localization at multiple levels in the lower lumbar spine bilaterally. TOTAL DAP= 0.00197 mGy x m2. IMPRESSION: As Above. [facility], , 06/04/2024 12:42 PM
[2024-06-04 13:06] VITALS: BP 136/91; PULSE 109; RESP 18
== END 2024-06-04 13:20 | disposition home or self-care (01) ==
LOC: ORPAIN 11:36
PROVIDERS: ATTEND Specialist
DX: M47.816 Spondylosis without myelopathy or radiculopathy, lumbar region (principal); Z88.1 Allergy status to other antibiotic agents
CPT/HCPCS: 64493; 64494; J2250; J3010; J2795; 99152

== ENCOUNTER → 2024-07-29 | Outpatient (CLI) | payer BC ==
--- NOTE | 2024-07-29 10:29 | US ---
EXAMINATION TYPE: US carotid duplex BILAT DATE OF EXAM: 07/29/2024 COMPARISON: NONE CLINICAL INDICATION: Female, 53 years old with history of I65.29 STENOSIS CAROTID ARTERY; stenosis Additional History: R42* Dizziness TECHNIQUE: Grayscale, color Doppler and spectral Doppler evaluation of the bilateral carotid systems and vertebral arteries. Indirect Doppler criteria was utilized. FINDINGS: EXAM MEASUREMENTS: RIGHT: Peak Systolic Velocity (PSV) cm/sec ----- Right CCA: 60.4 ----- Right ICA: 67.6 ----- Right ECA: 189 ICA/CCA ratio: 1.1 RIGHT: End Diastole cm/sec ----- Right CCA: 16.9 ----- Right ICA: 27.3 ----- Right ECA: 38.3 LEFT: Peak Systolic Velocity (PSV) cm/sec ----- Left CCA: 73 ----- Left ICA: 83.6 ----- Left ECA: 112 ICA/CCA ratio: 1.1 LEFT: End Diastole cm/sec ----- Left CCA: 22.1 ----- Left ICA: 32 ----- Left ECA: 22.1 VERTEBRALS (direction of flow): Right Vertebral: Antegrade Left Vertebral: Antegrade Rhythm: Normal ARTERIAL EMBALMER NOTES: No significant stenosis seen Color Doppler imaging shows patency with blood flow throughout the carotid artery. Spectral waveforms are within normal limits. IMPRESSION: No evidence of hemodynamically significant stenosis. Criteria for Assigning % of Stenosis / Diameter reduction (Estimation based on the indirect measurements of the internal carotid artery velocities (ICA PSV). 1. Normal (no stenosis)=ICA PSV < 125 cm/s: ratio < 2.0: ICA EDV<40 cm/s. 2. Less than 50% stenosis=ICA PSV < 125 cm/s: ratio < 2.0: ICA EDV<40 cm/s. 3. 50 to 69% stenosis=ICA PSV of 125 to 230 cm/s: ration 2.0 ? 4.0: ICA EDV 40-100 cm/s. 4. Greater than 70% stenosis to near occlusion= ICA PSV > 230 cm/s: ratio > 4.0: ICA EDV > 100 cm/s. 5. Near occlusion= ICA PSV velocities may be low or undetectable: variable ratio and ICA EDV. 6. Total occlusion=unable to detect flow. [facility], , 07/29/2024 10:27 AM
== END | disposition home or self-care (01) ==
LOC: RADUSWWP 09:35
PROVIDERS: ATTEND Family Medicine
DX: I65.23 Occlusion and stenosis of bilateral carotid arteries (principal)
CPT/HCPCS: 93880

== ENCOUNTER → 2024-08-07 | Day surgery (SDC) | payer BC ==
[2024-08-06 12:16] VITALS: BMI 36.4
[~2024-08-07] MED LIST changes: +MIDAZOLAM 2 MG/2 ML VIAL ONE; +ROPIVACAINE 5MG/ML 20ML VIAL ONE; +fentaNYL (PF) 50 MCG/ML 2 ML AMP ONE
[2024-08-07 09:15] VITALS: RESP 16; TEMP 97.6
[2024-08-07] MEDS: IV FLUID CONTINUATION 1,000 ML IV ONE ×2 (09:15→09:57)
--- NOTE | 2024-08-07 10:04 | P.PCN ---
Description of Procedure: Preprocedure diagnosis. 1. Lumbar spondylosis with facet joint arthropathy without myelopathy. 2. Lumbar degenerative disc disease. Postprocedure diagnosis. As above. Procedure done. Bilateral diagnostic block with local anesthetics at L3, L4, L2 medial branch to target the facet joint L4-5 and L3-4 with fluoroscopic guidance (fluoroscopy images are available in the radiology department) . Anesthesia. Moderate sedation with intravenous Versed 2 mg and fentanyl 100 and local infiltration with local anesthetics. In OR, continuous pulse ox, EKG, blood pressure and verbal communication was maintained. Sedation time-start 0933 end 0950 . Blood loss. Minimal. Indication. The patient has low back pain secondary to lumbar facet joint arthropathy. Discussed the procedure and alternative and complications which includes infection, bleeding, nerve damage, paralysis ,aggravation of pain. Patient understands and all questions were answered. Patient iunderstands that if any pain relief occurs it will last for a few hours to a few days maximum. Procedure description. After getting consent patient was taken in the OR in prone position. Back prepped with chlorhexidine and draped in sterile fashion. With slight oblique fluoroscope, after injecting 5 mL of plain 1% lidocaine subcutaneously, a 22-gauge spinal needle was introduced under tunnel vision of the fluoroscope at the junction of the superior articular process with RIGHT L5 transverse process, junction of the superior articular process with the RIGHT L4 and L3 transverse process. Negative CSF, negative blood, negative paresthesia. After needle position confirmation by AP and crosstable lateral view, after negative aspiration, half milliliters of solution were injected at each point. Total 1-1/2 mL of solution was injected on the right side which consists of 0.5% ropivacaine. In exactly same way, LEFT sided injections were done at the foll owing 3 points. Junction of the superior articular process with left L3 transverse process, junction of the superior articular process with the left L5 transverse process, junction of the superior articular process with left L4 transverse process using 0.5 mL of solution at each point. Total 1-1/2 mL of solution was injected on the left side which consists of 0.5% ropivacaine . Spinal needles were taken out and bandages were applied. Disposition. Patient tolerated the procedure well. No complication. Discharged home in stable condition
[2024-08-07 10:09] VITALS: BP 148/84; PULSE 105
--- NOTE | 2024-08-07 10:26 | FL ---
EXAMINATION TYPE: FL guided pain mgmt statistic DATE OF EXAM: 08/07/2024 10:06 AM COMPARISON: Pre Operative Images if available both CT/MRI or plain film CLINICAL INDICATION: Female, 53 years old with history of BACK PAIN FB JOCY LUM; TECHNIQUE: FL guided pain mgmt statistic, multiple fluoroscopic images provided for procedure. DAP: 0.45230 mGym2 Gycm2 uGym2 cGycm2 or equivalent. FINDINGS: Fluoroscopic images during injection for pain management demonstrate multilevel degeneration changes throughout the spine. No evidence for fracture. No acute process identified. IMPRESSION: 1. No evidence for intraoperative complication. 2. Please see the operative/procedural note for further details. [facility], , 08/07/2024 10:24 AM
== END ==
LOC: ORPAIN 08:50
PROVIDERS: ATTEND Pain Medicine Interventional Pain Medicine
DX: M47.816 Spondylosis without myelopathy or radiculopathy, lumbar region (principal); M51.369 Other intervertebral disc degeneration, lumbar region without mention of lumbar back pain or lower extremity pain; Z88.1 Allergy status to other antibiotic agents
CPT/HCPCS: 64493; 64494; J2250; J3010; J2795; 99152; 99153

== ENCOUNTER → 2024-08-27 | Outpatient (CLI) | payer BC ==
[2024-08-27 10:35] VITALS: BP 171/103; PULSE 114; RESP 16; TEMP 97.7
--- NOTE | 2024-08-27 14:14 | P.PAINPG ---
PQRS Measure Charge Sheet Comment: HISTORY OF PRESENT ILLNESS: A 53 yr old female w history of Fibromyalgia presents today w severe and chronic LBP > 6 mo secondary to radiculopathy, spondylosis and facet arthropathy without myelopathy for evaluation s/p BL MBB L3-L4/ L4-L5 #2. Pt states she experienced 0 % pain relief s/p procedure. Pt states pain level is provoked at 6 /10 in intensity, constant, localized in the lumbar spine, predominantly axial, achy in character w occasional shooting pain L & R of midline. Pain is provoked by walking/ standing for periods > 15 min. Pain is alleviated by massage therapy semi monthly x 6 months which ended in Summer 2023, physician guided home stretches daily since Summer 2023, heat, medications , repositioning and rest . Interventional procedures include BL MBB L3-L4/ L4-L5 x2 Medications include Neurontin, Ibu REVIEW OF ORGAN SYSTEMS: CONSTITUTIONAL: No fevers or chills. No recent weight loss. NEUROLOGICAL: + numbness and tingling along the distal extremities. No seizure disorders or headaches. MUSCULOSKELETAL: + pain PSYCHIATRIC: Denies current depression or suicidal thoughts. Physical Examinations : Constitutional : Cooperative , not in acute distress . Neurologic : Cranial nerve II to XII intact. No focal neurological deficits. Psychiatric : alert & oriented x 3. Matching mood & appropriate affect. Judgment & insight intact. Musculoskeletal : Cervical Spine Motor strength in the deltoid and biceps: Normal right side. Normal Left side Motor strength biceps and the wrist extensors: Normal right side . Normal left side Motor strength in the triceps muscle: Normal right side. Normal left side Deep tendon reflexes: Normal at the biceps. Normal at Brachioradialis. Normal at triceps Vertebral body tenderness to deep palpation over Cervical facet loading test: positive bilaterally Spurling test: positive bilaterally Neck distraction test: positive bilaterally Jud sign: positive bilaterally Lumbar spine Motor strength lower extremities ,thigh and legs 5/5 Right side , 5/5 Left side Deep tendon reflexes : Normal Knee Jerk. Normal Ankle Jerk Vertebral body tenderness over Gambino Test positive Lumbar facet Loading Test: positive Right / positive Left L3-L4/ L4-L5 Range of motion of the lumbar spine Flexion 30 degrees, extension 10 degrees Straight Leg Raise test: Left/ Right positive at degrees Jl test: positive right / positive left. Severe tenderness over the Sacroiliac joint on the Right / Left sides Gaenslen test: positive bilaterally Seated flexion test: positive bilaterally. Sacral spine : Severe tenderness over the Sacroiliac joint: right side / left side Range of motion: Flexion of the lumbar spine <60 degrees Range of motion: Extension of the lumbar spine <20 degrees Gaenslen's Test positive Jl test: positive right side / left side Thigh Thrust Test Sacral Thrust Test Imaging: MRI non contrast lumbar spine from 03/25/24 reviewed Assessment/ Plan : Lumbar radiculopathy Recommendation of follow up w Dr Mcknight to explore additional treatment options. All questions answered. I have spent greater than 30 minutes on patient care today. Dr Fierro was available by phone for the evaluation of this patient. The time was used to review the medical records including relevant urine studies and Prescription history (MAPs), review of the available imaging, evaluation and examination of the patient, coordination of care with the medical staff and if applicable referring physicians, as well as creation of the medical record PQRS Narrative: Smoking Status Current every day smoker Hx Alcohol Use (MH) No Home Medications: Ambulatory Orders DULoxetine HCL [Cymbalta] 60 mg PO QAM 05/30/18 Omeprazole 40 mg PO DAILY PRN 08/08/21 Albuterol Nebulized [Ventolin Nebulized] 2.5 mg INHALATION RT-TID PRN 10/20/21 Fluticasone/Vilanterol [Breo Ellipta 200-25 Mcg Inhaler] 1 puff INHALATION RT- DAILY 10/20/21 Tiotropium 2.5 Mcg/Puff [Spiriva Respimat 2.5 Mcg] 2 puff INHALATION RT-DAILY 10/20/21 Gabapentin [Neurontin] 300 mg PO HS 06/01/24 Ibuprofen [Motrin Ib] 800 mg PO Q6HR PRN 06/01/24 Lisdexamfetamine Dimesylate [Vyvanse] 30 mg PO QAM 06/01/24 Controlled Substance Measures - Controlled Substance Measures Is patient prescribed a controlled substance at discharge?: No
== END ==
LOC: PNWHC3 08:43
PROVIDERS: ATTEND Specialist
DX: M47.16 Other spondylosis with myelopathy, lumbar region (principal); F17.210 Nicotine dependence, cigarettes, uncomplicated; Z88.1 Allergy status to other antibiotic agents; Z88.8 Allergy status to other drugs, medicaments and biological substances
CPT/HCPCS: 99211

== ENCOUNTER → 2024-11-03 | Outpatient (CLI) | payer BC ==
--- NOTE | 2024-11-03 15:58 | CT ---
EXAMINATION TYPE: CT lumbar spine wo con DATE OF EXAM: 11/03/2024 3:46 PM COMPARISON: None CLINICAL INDICATION: Female, 54 years old with history of M48.06 MUSCLE WEAKNESS (GENERALIZED); PHH, low back pain TECHNIQUE: Unenhanced CT of the lumbar spine was performed. Bone and soft tissue window settings are submitted as well as coronal and sagittal reconstructions. CT DLP: [address] CTDI: mGy Automated exposure control for dose reduction was used. FINDINGS: Lumbar vertebral segments are normal in height and alignment and there is no fracture or subluxation. There is moderate degenerative disease at the L2-3 and L3-4 levels where there is vacuum phenomena, moderate disc space narrowing, spondylosis and circumferential disc bulge. There is mild degenerative disc disease at the L4-5 level where there is mild disc space narrowing and circumferential disc bul ge. At the L3-4 level, there is a moderate to marked eccentric disc bulge to the right of midline comprom ising the right lateral recess and right L3-4 neural foramina. Overall, there is a mild to moderate s tonja stenosis secondary to disc bulge, facet hypertrophy and thickening of ligamentum flavum. At the L2-3 level, circumferential disc bulge and mild thickening of ligamentum flavum results in mil d spinal stenosis. At the L4-5 level, secondary to circumferential disc bulge, moderate thickening of ligamentum flavum and facet hypertrophy there is a moderate spinal stenosis. There is a far left lateral broad-based d isc protrusion at the L4-5 level causing severe L4-5 neural foraminal stenosis.. IMPRESSION: 1. No lumbar spine fracture or malalignment. 2. Multilevel degenerative disease greatest at L2-3 and L3-4 levels. 3. Multilevel spinal stenosis as described above. 4. Multilevel neural foraminal stenosis as described above. 4. Broad based disc protrusion/eccentric disc bulges at the L2-3 level on the right and at the L4-5 l evel on the left as described above. [facility], , 11/03/2024 3:56 PM
== END | disposition home or self-care (01) ==
LOC: RADCTMAIN 15:18
PROVIDERS: ATTEND Orthopaedic Surgery
DX: M62.81 Muscle weakness (generalized) (principal); M51.360 Other intervertebral disc degeneration, lumbar region with discogenic back pain only; M48.061 Spinal stenosis, lumbar region without neurogenic claudication; M51.26 Other intervertebral disc displacement, lumbar region
CPT/HCPCS: 72131